=== PATIENT | male | born 1935 | race Caucasian/White ===

== ENCOUNTER → 2018-01-15 07:45 | Outpatient (CLI) | payer MEDICARE, OTHER, SELFPAY ==
--- NOTE | 2018-01-15 07:45 | DT_ITS ---
This patient was seen during an EMR downtime January 13, 2018 - January 20, 2018. This patient may have a combination of paper and electronic documentation or all paper documentation. All documentation is viewable within the e-chart portion of [facility] for each patient visit.
[2018-01-20 12:37] LABS: AST(SGOT) 18 U/L (15-37); Alanine Aminotransfer ALT/SGPT 15 U/L (16-61); Albumin, Serum 3.8 g/dL (3.2-5.0); Alkaline Phosphatase 63 U/L (45-117); Bilirubin, Direct 0.11 mg/dL (0.00-0.30); Cholesterol 166 mg/dL (200); Globulin 3.1 g/dL (2.2-4.2); High Density Lipoprotein 47 mg/dL; Protein, Total 6.9 g/dL (6.4-8.2); Triglycerides 226 mg/dL; Very Low Density Lipoprotein 45 mg/dL (5-40)
== END ==
PROVIDERS: Family Provider Internal Medicine; PCP Internal Medicine; Visit Provider Internal Medicine Cardiovascular Disease
DX: E78.00 Pure hypercholesterolemia, unspecified (principal); I25.10 Atherosclerotic heart disease of native coronary artery without angina pectoris
CPT/HCPCS: 36415; 80061; 80076

== ENCOUNTER 2018-02-11 07:34 | Emergency (ER) | payer MEDICARE, OTHER, SELFPAY ==
[2018-02-11 07:35] VITALS: BP 212/82; PULSE 8; RESP 16; TEMP 36.4; O2SAT 98; BMI 30.7
[2018-02-11 07:52] VITALS: BP 162/62; PULSE 76; RESP 18; O2SAT 97
--- NOTE | 2018-02-11 08:00 | CT_ITS ---
STUDY: CT ABDOMEN AND PELVIS WITH CONTRAST REASON FOR EXAM: Male, 82 years old. Left shoulder pain. Colonoscopy performed 24 hours prior to the examination. History of colon cancer. RADIATION DOSAGE (If Supplied By Facility): CTDIvol = ( 16.93 ) mGy, DLP = ( 1360.26 ) mGycm TECHNIQUE: Transaxial images were obtained from the dome of the diaphragm to the symphysis pubis without oral contrast. 100CC ml of Isovue 300 contrast was administered. Sagittal and coronal images were reconstructed. Individualized dose optimization techniques were used for this CT. COMPARISON: Comparison is made with prior examination dated May 07, 2017. FINDINGS: There are increased linear markings at the right lung base suggestive of scarring. The visualized portions of the heart are within normal limits. Normal liver. Sludge is seen within the gallbladder lumen. Normal spleen. Normal pancreas. Normal bilateral adrenal glands. There is a 3.4 cm x 4 cm cyst in the inferior pole of the right kidney. Normal left kidney. There is a small hiatal hernia. Normal small intestine. There are multiple colonic diverticula consistent with diverticulosis. The appendix is visualized and appears normal. There is diffuse atherosclerotic calcification of the abdominal aorta and its major visceral branches, without a demonstrated aneurysm. Normal inferior vena cava. Normal retroperitoneum. Mild degree of bladder wall thickening. There is enlargement of the prostate gland. The prostate measures 4.9 cm x 4.9 cm. There is a right-sided inguinal hernia containing adipose tissue. Loss of height of the superior endplate of the L2 vertebrae. CT/Abdomen/Pelvis W IV Cont ONLY IMPRESSION: Findings suggest femoral right basilar scarring. Scattered sigmoid diverticula. Prostatic hypertrophy. Mild thickening of the urinary bladder wall. Electronically Signed: Emanuel Cannon MD at 9:50 EDT Tel [phone], Service support ,
--- NOTE | 2018-02-11 08:00 | EKG12_ITS ---
Test Reason : LEFT ARM PAIN Blood Pressure : / mmHG Vent. Rate : 079 BPM Atrial Rate : 079 BPM P-R Int : 152 ms QRS Dur : 092 ms QT Int : 432 ms P-R-T Axes : 043 007 151 degrees QTc Int : 495 ms Normal sinus rhythm Voltage criteria for left ventricular hypertrophy T wave abnormality, consider anterolateral ischemia Prolonged QT Abnormal ECG Confirmed by TONIA MELCHOR, HOSSEIN ([id number]), visual effects editor JOE KIM ([id number]) on 02/13/2018 2:14:10 PM Referred By: Hossein Arita Confirmed By:HOSSEIN ARITA MD
--- NOTE | 2018-02-11 08:01 | CT_ITS ---
STUDY: CTA CHEST REASON FOR EXAM: Male, 82 years old. Left shoulder pain following recent colonoscopy. RADIATION DOSAGE (If Supplied By Facility): CTDIvol = ( 16.93 ) mGy, DLP = ( 1360.26 ) mGycm TECHNIQUE: The examination was performed with the intravenous administration of 100CC ml of Isovue 370 contrast material. Post-processing of the angiographic images was performed, with multiplanar reformation and 3D reconstruction. Individualized dose optimization techniques were used for this CT. COMPARISON: Comparison is made with prior study dated February 24, 2017. FINDINGS: Normal enhancement of the main pulmonary artery and right and left pulmonary arteries. Normal enhancement of the bilateral peripheral pulmonary arteries. There is no demonstrated pulmonary embolism. There is atherosclerotic calcification of the aortic arch with tortuosity. There is no demonstrated aortic dissection. There is cardiomegaly. There are calcifications of the coronary arteries. Stable appearance of the subcarinal lymphadenopathy. Prominent right hilar lymph node. This is unchanged. Normal hilar regions. Normal visualized trachea and bronchi. The lungs are well expanded. Emphysematous changes. Findings suggestive scarring in the right lower lobe. Since prior study, there has been improved aeration of the left lower lobe with residual bronchiectasis and scarring. Normal pleura. Normal chest wall structures. There are degenerative changes of thoracic spine. Almost complete collapse of the mid dorsal vertebrae. Normal visualized upper abdomen. CT/CTA Chest W/WO Contrast IMPRESSION: Chronic changes in the lungs. No evidence of aortic dissection. Electronically Signed: Emanuel Cannon MD at 9:53 EDT Tel [phone], Service support ,
[2018-02-11] MEDS: Morphine 4 MG/ML Syringe IV (08:15)
[2018-02-11] MEDS: Ondansetron 4 MG/2 ML Vial IV (08:15)
[2018-02-11] MEDS: 0.9% Normal Saline 1,000 ML 1000 ML IV (08:15)
[2018-02-11 08:18] VITALS: BP 155/64; PULSE 74; RESP 17; O2SAT 94
[2018-02-11 08:44] LABS: Absolute Lymphocyte Count 1.44 X10^3/ul (0.83-4.51); Absolute Neutrophil Count 3.9 X10^3/uL (2.0-7.7); Basophil# 0.02 X10^3/uL; Basophil% 0.3 % (0-1); Eosinophil# 0.16 X10^3/uL; Eosinophils% 2.6 % (0-5); Hematocrit 37.6 % (40-54); Hemoglobin 12.6 g/dl (13.0-16.5); Lymphocyte # 1.44 X10^3/ul (4.0); Mean Corp Hgb Conc 33.5 g/gl (32-36); Mean Corpuscular Hgb 31.2 pg (27.0-32.0); Mean Corpuscular Volume 93.1 fL (80-94); Mean Platelet Vol. 8.9 fl (6.2-12.0); Monocyte# 0.73 X10^3/uL; Monocyte% 11.7 % (0-10); Neutrophil % 62.2 % (47-70); Platelet Count 167 K/mm3 (150-450); RBC Distribution Width SD 47.4 fl (35.1-43.9); Red Blood Count 4.04 M/mm3 (4.6-6.2); White Blood Count 6.3 K/mm3 (4.4-11.0)
[2018-02-11 08:45] LABS: POSITIVE COUNT NO; POSITIVE DIFFERENTIAL NO; POSITIVE MORPHOLOGY NO
--- NOTE | 2018-02-11 08:51 | ED.VISSUMM ---
- ER Visit Summary Date of Service: 02/11/18 Chief Complaint: Left shoulder and arm pain History of Present Illness: The patient is a [address] Arita and Dr. Becker. He reports that he has left shoulder and arm pain that began yesterday at 5 PM. It is continuous dull, aching pain. It is 8 out of 10 at worst and 4-10 currently. Is worsened by nothing including movement. Is relieved by laying on it. Patient reports that he had a colonoscopy with biopsies and endoscopy by Dr. Maloney yesterday at [facility] [place]. States that this was completed approximately 3 hours prior to the onset of his left shoulder pain. However, he does report he was laying on his left side during this procedure. Review of systems: General: No fever, chills, cold sweats. Cardiovascular: No chest pain, palpitations. Respiratory: No cough, shortness of breath, dyspnea on exertion. Gastrointestinal: No abdominal pain, nausea, vomiting, diarrhea, melena, or hematochezia. Genitourinary: No dysuria, frequency, hematuria. Skin: No rash. Neuro: No headache, numbness, weakness. Physical Examination: Vitals: Stable. Afebrile. General: Well-nourished and well-developed. Head: Normocephalic atraumatic. Neck: Supple, no lymphadenopathy. No JVD. Nontender. Cardiovascular: Regular rate and rhythm. 2 out of 6 systolic murmur I am unable to reproduce his pain with palpation or movement of his left shoulder. There is no overlying erythema or warmth to suggest a septic joint.. Respiratory: No respiratory distress. Clear to auscultation bilaterally. Abdominal: Soft, nontender, nondistended, normal bowel sounds. No guarding, rebound, or peritoneal signs. Back: Nontender. Extremities: Nontender, no edema. Is a 2+ radial pulse. Skin: Normal color, no rash. Neurologic: Alert and oriented ?3. Cranial nerves II through XII are intact. Normal strength and sensation. Psych: Normal affect. Test Results: EKG is sinus at 79 with T-wave inversions in the 2 to V6, 1/2/aVL. QTC is 495. Is unchanged since February 24, 2017. CBC is marked for an H&H 12.6 and 37.6 monocytes of 12. Comes is more for calcium 8.2. Troponins negative. CT of the chest shows chronic changes and no dissection. CT abdomen pelvis with IV contrast only shows chronic changes. Emergency Department Course and Treatment: Patient was given a dose of morphine and is resting comfortably. Treatment Plan: Patient will be discharged with [place]. Instructed to use stool softeners. Follow-up his primary care physician 1 week if not improving. Return to the emergency department for any worsening symptoms. Disposition: To home in improved and stable condition. Impression: 1. Left arm pain, uncertain cause. This note was generated with [employer] dictation software. It may contain incorrect words, spelling, and punctuation that were not noted in review of the chart prior to signing ED Disposition - Plan for ED Patient: Chief Complaint: Upper Extremity Injury Instructions: ED Shoulder Pain [facility] Prescriptions: Hydrocodone/Acetaminophen [[place] 5-325 Tablet] 1 - 2 each PO 4X/DAY PRN PRN 3 Days #12 tablet PRN Reason: Pain Referrals: Catherine Becker MD [Primary Care Provider] - 1 Week if not improving
--- NOTE | 2018-02-11 08:54 | ED.DCSUM_ITS ---
- ER Visit Summary Date of Service: 02/11/18 Chief Complaint: Left shoulder and arm pain History of Present Illness: The patient is a [address] Arita and Dr. Becker. He reports that he has left shoulder and arm pain that began yesterday at 5 PM. It is continuous dull, aching pain. It is 8 out of 10 at worst and 4-10 currently. Is worsened by nothing including movement. Is relieved by laying on it. Patient reports that he had a colonoscopy with biopsies and endoscopy by Dr. Maloney yesterday at [facility]. States that this was completed approximately 3 hours prior to the onset of his left shoulder pain. However, he does report he was laying on his left side during this procedure. Review of systems: General: No fever, chills, cold sweats. Cardiovascular: No chest pain, palpitations. Respiratory: No cough, shortness of breath, dyspnea on exertion. Gastrointestinal: No abdominal pain, nausea, vomiting, diarrhea, melena, or hematochezia. Genitourinary: No dysuria, frequency, hematuria. Skin: No rash. Neuro: No headache, numbness, weakness. Physical Examination: Vitals: Stable. Afebrile. General: Well-nourished and well-developed. Head: Normocephalic atraumatic. Neck: Supple, no lymphadenopathy. No JVD. Nontender. Cardiovascular: Regular rate and rhythm. 2 out of 6 systolic murmur I am unable to reproduce his pain with palpation or movement of his left shoulder. There is no overlying erythema or warmth to suggest a septic joint.. Respiratory: No respiratory distress. Clear to auscultation bilaterally. Abdominal: Soft, nontender, nondistended, normal bowel sounds. No guarding, rebound, or peritoneal signs. Back: Nontender. Extremities: Nontender, no edema. Is a 2+ radial pulse. Skin: Normal color, no rash. Neurologic: Alert and oriented ?3. Cranial nerves II through XII are intact. Normal strength and sensation. Psych: Normal affect. Test Results: EKG is sinus at 79 with T-wave inversions in the 2 to V6, 1/2/ aVL. QTC is 495. Is unchanged since February 24, 2017. CBC is marked for an H&H 12.6 and 37.6 monocytes of 12. Comes is more for calcium 8.2. Troponins negative. CT of the chest shows chronic changes and no dissection. CT abdomen pelvis with IV contrast only shows chronic changes. Emergency Department Course and Treatment: Patient was given a dose of morphine and is resting comfortably. Treatment Plan: Patient will be discharged with [place]. Instructed to use stool softeners. Follow-up his primary care physician 1 week if not improving. Return to the emergency department for any worsening symptoms. Disposition: To home in improved and stable condition. Impression: 1. Left arm pain, uncertain cause. This note was generated with [facility] dictation software. It may contain incorrect words, spelling, and punctuation that were not noted in review of the chart prior to signing ED Disposition - Plan for ED Patient: Chief Complaint: Upper Extremity Injury Instructions: ED Shoulder Pain [facility] Prescriptions: Hydrocodone/Acetaminophen [[place] 5-325 Tablet] 1 - 2 each PO 4X/DAY PRN PRN 3 Days #12 tablet PRN Reason: Pain Referrals: Catherine Becker MD [Primary Care Provider] - 1 Week if not improving
[2018-02-11 09:01] LABS: Anion Gap 10 (5-15); BUN 10 mg/dL (7-18); BUN/Creat Ratio 13.4 RATIO (10-20); Calcium,Total 8.2 mg/dL (8.5-10.1); Chloride 105 mmol/L (98-107); Creatinine, Serum 0.74 mg/dL (0.70-1.30); EST Glomerular Filtration Rate 107 mL/min (>60); Est Glom Filt Rate - Afr Amer 129 mL/min (>60); Estimated Creatinine Clearance 51.39 ml/min; Glucose 89 mg/dL (74-106); Potassium 3.9 mmol/L (3.5-5.1); Sodium Level 143 mmol/L (136-145)
[2018-02-11 10:16] VITALS: BP 135/54; PULSE 67; RESP 16; RESP 18; O2SAT 96
== END 2018-02-11 10:19 | disposition home or self-care (01) ==
PROVIDERS: Emergency Provider Emergency Medicine; Family Provider Internal Medicine; PCP Internal Medicine
DX: M79.602 Pain in left arm (principal); I10 Essential (primary) hypertension; E78.00 Pure hypercholesterolemia, unspecified; I25.10 Atherosclerotic heart disease of native coronary artery without angina pectoris; J44.9 Chronic obstructive pulmonary disease, unspecified; N40.0 Benign prostatic hyperplasia without lower urinary tract symptoms; R01.1 Cardiac murmur, unspecified
CPT/HCPCS: 71275; 74177; 80048; 84484; 85025; 93005; 99284; J7030; Q9967; A4216; J2405

== ENCOUNTER → 2018-05-30 10:35 | Outpatient (CLI) | payer MEDICARE, OTHER, SELFPAY ==
--- NOTE | 2018-05-30 10:40 | CDU_ITS ---
Reason For Study: Carotid artery stenosis Rt. Velocities/BP Lt. Velocities/BP Prox CCA 89.1/8.79 cm/sec. Prox CCA 103/10.6 cm/sec. Mid CCA 102/14.9 cm/sec. Mid CCA 99.1/11.7 cm/sec. Dist CCA 108/13.4 cm/sec. Dist CCA 99.7/11.1 cm/sec. Prox ICA 68.6/17.6 cm/sec. Prox ICA 312/59.9 cm/sec. Mid ICA 88.5/22.3 cm/sec. Mid ICA 270/36.1 cm/sec. Dist ICA 84.4/24 cm/sec. Dist ICA 68/13.5 cm/sec. Rt. ICA/CCA = 0.87. Lt. ICA/CCA = 3.13. Prox ECA 113 cm/sec. Prox ECA 114 cm/sec. Rt. Vert. 63/13 cm/sec. Lt. Vert. 49.9/9.43 cm/sec. Right Extracranial There is heterogeneous, smooth atherosclerotic plaque noted in the right common carotid artery. There is heterogeneous, smooth atherosclerotic plaque noted in the right internal carotid artery. There is heterogeneous, irregular atherosclerotic plaque noted in the right external carotid artery. Antegrade flow is noted in the right vertebral artery. Left Extracranial There is heterogeneous, smooth atherosclerotic plaque noted in the left common carotid artery. There is heterogeneous, irregular atherosclerotic plaque noted in the left internal carotid artery. There is heterogeneous, smooth atherosclerotic plaque noted in the left external carotid artery. Antegrade flow is noted in the left vertebral artery. Procedure Carotid Duplex [id number]. Exam performed in department. Interpretation Summary Mild (<50%) stenosis right extracranial internal carotid. Severe (>70%) stenosis left extracranial internal carotid. Flow within the vertebral arteries is antegrade bilaterally. Ordering Physician: Shayne Anderson .eferring Physician: Catherine Becker M.D
== END ==
PROVIDERS: Family Provider Internal Medicine; PCP Internal Medicine; Referring Provider Nurse Practitioner Family; Visit Provider Nurse Practitioner Family
DX: I65.22 Occlusion and stenosis of left carotid artery (principal)
CPT/HCPCS: 93880

== ENCOUNTER → 2019-04-22 19:54 | Outpatient (CLI) | payer MEDICARE, OTHER, SELFPAY ==
[2019-04-08 08:55] VITALS: BMI 31.1
== END ==
PROVIDERS: Family Provider Internal Medicine; PCP Internal Medicine; Referring Provider Internal Medicine Critical Care Medicine; Visit Provider Internal Medicine Critical Care Medicine
DX: G47.10 Hypersomnia, unspecified (principal)
CPT/HCPCS: 95810

== ENCOUNTER → 2019-04-23 09:40 | Outpatient (CLI) | payer MEDICARE, OTHER, SELFPAY ==
[2019-04-08 08:55] VITALS: BMI 31.1
--- NOTE | 2019-04-24 08:34 | PFT ---
INTRODUCTION: The patient is an 84-year-old male that presents for pulmonary function studies secondary to a diagnosis of dyspnea. Respiratory therapy reports good patient effort. Bronchodilators were used during testing. INTERPRETATION: Forced expiration spirometry demonstrates the presence of a moderate large airways obstructive ventilatory defect. There was no significant response to aerosolized bronchodilators, based upon strict ATS criteria. Spirograms are of good quality and do not plateau indicating slow emptying of the lungs. Body plethysmography was performed and reveals lung volumes to be within normal limits. Diffusing capacity by single breath CO is reduced at 62% of predicted. IMPRESSION: Irreversible moderate large airways obstructive ventilatory defect with reduction in diffusing capacity.
== END ==
PROVIDERS: Family Provider Internal Medicine; PCP Internal Medicine; Referring Provider Internal Medicine Critical Care Medicine; Visit Provider Internal Medicine Critical Care Medicine
DX: R06.09 Other forms of dyspnea (principal); R05 Cough
CPT/HCPCS: 87070; 87077; 87186; 87205; 94060; 94726; 94729

== ENCOUNTER → 2019-04-24 14:37 | Outpatient (CLI) | payer MEDICARE, OTHER, SELFPAY ==
[2019-04-08 08:55] VITALS: BMI 31.1
--- NOTE | 2019-04-24 14:40 | ECHOCS_ITS ---
Reason For Study: Dyspnea/SOB Procedure This was a 2D Doppler, Color Flow transthoracic echocardiogram. Contrast injection was performed. The study was technically difficult. Exam performed in department. Left Ventricle Normal LV size. Moderate concentric left ventricular hypertrophy. The estimated ejection fraction is 55 %. Mid cavitary gradient noted. No regional wall motion abnormalities noted. Right Ventricle Normal RV size. Normal systolic function. Atria The left atrium is moderately enlarged. Normal right atrium. Mitral Valve There is moderate mitral annular calcification. Mild (1+) eccentric mitral valve insufficiency. Tricuspid Valve Normal tricuspid valve. Aortic Valve Trisinus/trileaflet aortic valve. Moderate focal aortic valve calcification. Peak aortic valve gradient 38 mmHg. Mean aortic valve gradient 20 mmHg. Mild to moderate aortic stenosis. Mild (1+) aortic valve insufficiency. Pulmonic Valve Normal pulmonic valve. Great Vessels Normal aortic root. The pulmonary artery is normal size. Normal inferior vena cava. Pericardium/Pleural No pericardial effusion. Medication 22 gauge I.V. with prn adaptor inserted into left arm. Diluted definity 4ml given slow IV push to enhance endocardial definition. MMode/2D Measurements & Calculations LVIDd: 4.4 cm IVSd: 1.8 cm LVOT diam: 2.1 cm LVIDs: 2.9 cm LVPWd: 1.9 cm RVDd: 2.8 cm FS: 33.6 % LVOT area: 3.6 cm2 Ao root diam: 3.4 cm LAV(MOD-bp): 100.6 ml LA A4 area: 29.1 cm2 ACS: 1.2 cm LAV(MOD-bp) Indexed: 51.4 ml/m2 LA dimension: 4.8 cm LAV(MOD-sp2): 87.8 ml LAV(MOD-sp4): 110.9 ml RA A4 area: 14.8 cm2 Time Measurements MV dec time: 0.19 sec Doppler Measurements & Calculations MV E max andrew: 104.6 cm/sec Lat Peak E' Andrew: 4.6 cm/sec Med Peak E' Andrew: 3.4 cm/sec MV A max andrew: 112.1 cm/sec E/E' lat: 22.8 E/E' med: 31.2 MV E/A: 0.93 MV V2 max: 123.3 cm/sec MV P1/2t max andrew: 115.6 cm/sec Ao V2 max: 308.6 cm/sec MV max P.1 mmHg MV P1/2t: 100.3 msec Ao max P.1 mmHg MV V2 mean: 71.7 cm/sec MV dec slope: 337.4 cm/sec2 Ao V2 mean: 204.8 cm/sec MV mean P.4 mmHg Ao mean P.6 mmHg MV V2 VTI: 34.4 cm MVA(P1/2t): 2.2 cm2 Ao V2 VTI: 69.0 cm MVA(VTI): 2.4 cm2 ANEL(I,D): 1.2 cm2 ANEL(V,D): 1.2 cm2 AI max andrew: 403.0 cm/sec LV V1 max: 100.1 cm/sec MR max andrew: 541.4 cm/sec AI max P.0 mmHg LV V1 max P.0 mmHg MR max P.2 mmHg AI dec slope: 345.2 cm/sec2 LV V1 mean P.8 mmHg AI P1/2t: 342.0 msec LV V1 mean: 59.9 cm/sec LV V1 VTI: 22.7 cm SV(LVOT): 81.5 ml PA V2 max: 93.4 cm/sec Interpretation Summary Normal LV size. Moderate concentric left ventricular hypertrophy. The estimated ejection fraction is 55 %. Mean aortic valve gradient 20 mmHg. Mild to moderate aortic stenosis. Mild (1+) aortic valve insufficiency. Ordering Physician: Jonny Campa Referring Physician: Catherine Becker M.D. Performed By: Nima Peters RCS
== END ==
PROVIDERS: Family Provider Internal Medicine; PCP Internal Medicine; Referring Provider Internal Medicine Critical Care Medicine; Visit Provider Internal Medicine Critical Care Medicine
DX: R06.09 Other forms of dyspnea (principal); I42.1 Obstructive hypertrophic cardiomyopathy
CPT/HCPCS: 93306; Q9957; A4216; C8929

== ENCOUNTER → 2019-06-04 09:39 | Outpatient (CLI) | payer MEDICARE, OTHER, SELFPAY ==
[2019-05-29 15:57] VITALS: BMI 30.9
--- NOTE | 2019-06-04 09:43 | CDU_ITS ---
Reason For Study: Vertigo Rt. Velocities/BP Lt. Velocities/BP Prox CCA 82.6/12.1 cm/sec. Prox CCA 100.9/7.8 cm/sec. Mid CCA 78.6/9.5 cm/sec. Mid CCA 80.8/11.5 cm/sec. Dist CCA 87.8/9.5 cm/sec. Dist CCA 104/7.8 cm/sec. Prox ICA 70.4/13.9 cm/sec. Prox ICA 296.2/52.1 cm/sec. Mid ICA 70.4/16.3 cm/sec. Mid ICA 122.1/12.3 cm/sec. Dist ICA 83.9/15.1 cm/sec. Dist ICA 95.7/16.7 cm/sec. Rt. ICA/CCA = 1.02. Lt. ICA/CCA = 2.94. Prox ECA 117.4 cm/sec. Prox ECA 142.9 cm/sec. Rt. Vert. 80.9/17 cm/sec. Lt. Vert. 52.3/10.6 cm/sec. Right Extracranial There is homogeneous, smooth atherosclerotic plaque noted in the right common carotid artery. There is heterogeneous, smooth atherosclerotic plaque noted in the right internal carotid artery. There is heterogeneous, irregular atherosclerotic plaque noted in the right external carotid artery. Antegrade flow is noted in the right vertebral artery. Left Extracranial There is homogeneous, smooth atherosclerotic plaque noted in the left common carotid artery. There is heterogeneous, irregular atherosclerotic plaque noted in the left internal carotid artery. There is homogeneous, smooth atherosclerotic plaque noted in the left external carotid artery. Antegrade flow is noted in the left vertebral artery. Procedure Carotid Duplex [id number]. Exam performed in department. Interpretation Summary Mild (<50%) stenosis right extracranial internal carotid. Severe (>70%) stenosis left extracranial internal carotid. Flow within the vertebral arteries is antegrade bilaterally. Ordering Physician: Shayne Anderson Referring Physician: Catherine Becker M.D. Performed By: Malena Segura RVT
== END ==
PROVIDERS: Family Provider Internal Medicine; PCP Internal Medicine; Referring Provider Nurse Practitioner Family; Visit Provider Nurse Practitioner Family
DX: I65.22 Occlusion and stenosis of left carotid artery (principal); I25.10 Atherosclerotic heart disease of native coronary artery without angina pectoris; I42.1 Obstructive hypertrophic cardiomyopathy; E78.00 Pure hypercholesterolemia, unspecified; Z95.5 Presence of coronary angioplasty implant and graft
CPT/HCPCS: 93880

== ENCOUNTER → 2020-11-24 10:41 | Outpatient (CLI) | payer MEDICARE, OTHER, SELFPAY ==
[2020-08-23 12:49] VITALS: BMI 28.5
--- NOTE | 2020-11-24 10:44 | CDU_ITS ---
Reason For Study: carotid stenosis Rt. Velocities/BP Lt. Velocities/BP Prox CCA 66.4/11.6 cm/sec. Prox CCA 109.3/11.0 cm/sec. Mid CCA 79.4/10.3 cm/sec. Mid CCA 109.3/8.9 cm/sec. Dist CCA 82.0/9.0 cm/sec. Dist CCA 103.8/8.3 cm/sec. Prox ICA 65.5/12.6 cm/sec. Prox ICA 297.7/34.9 cm/sec. Mid ICA 80.1/16.2 cm/sec. Mid ICA 238/9/27.1 cm/sec. Dist ICA 96.6/23.6 cm/sec. Dist ICA 65.0/12.2 cm/sec. Rt. ICA/CCA = 1.2. Lt. ICA/CCA = 2.7. Prox ECA 116.6 cm/sec. Prox ECA 125.7 cm/sec. Rt. Vert. 65.5/12.6 cm/sec. Lt. Vert. 60.0/9.7 cm/sec. Right Extracranial There is heterogeneous, irregular atherosclerotic plaque noted in the right common carotid artery. There is heterogeneous, irregular atherosclerotic plaque noted in the right internal carotid artery. There is heterogeneous, irregular atherosclerotic plaque noted in the right external carotid artery. Antegrade flow is noted in the right vertebral artery. Left Extracranial There is heterogeneous, irregular atherosclerotic plaque noted in the left common carotid artery. There is heterogeneous, irregular atherosclerotic plaque noted in the left internal carotid artery. There is homogeneous, smooth atherosclerotic plaque noted in the left external carotid artery. Antegrade flow is noted in the left vertebral artery. Procedure Carotid Duplex 73709. This is a Carotid Duplex examination using B-mode, color flow and specral Doppler. The exam was diagnostic. Exam performed in department. VL/Carotid Duplex Ultrasound Interpretation Summary Mild (<50%) stenosis right extracranial internal carotid. Moderate (50-69%) adore nosis left extracranial internal carotid. Flow within the vertebral arteries is antegrade bilaterally. Ordering Physician: Micheal Saenz Performed By: Guanakito Peterson RVT and Student
== END ==
PROVIDERS: PCP Internal Medicine; Visit Provider Surgery Vascular Surgery
DX: I65.23 Occlusion and stenosis of bilateral carotid arteries (principal)
CPT/HCPCS: 93880

== ENCOUNTER → 2021-04-06 09:39 | Outpatient (CLI) | payer MEDICARE, OTHER, SELFPAY ==
[2021-03-02 11:34] VITALS: BMI 28.7
--- NOTE | 2021-04-06 09:40 | ECHOCS_ITS ---
Reason For Study: MURMUR Procedure This was a 2D Doppler, Color Flow transthoracic echocardiogram. The study was technically difficult. Contrast injection was performed. Exam performed in department. Left Ventricle Normal LV size. Moderate concentric left ventricular hypertrophy. Left ventricular systolic function is lower limits of normal. The estimated ejection fraction is 50 %. Stage 3 diastolic dysfunction. [employer] : Akinetic. Right Ventricle Normal RV size. Normal systolic function. Mitral Valve There is moderate mitral annular calcification. Aortic Valve Trisinus/trileaflet aortic valve. Moderate focal aortic valve calcification. Peak aortic valve gradient 50 mmHg. Mean aortic valve gradient 30 mmHg. Moderate aortic stenosis. Mild (1+) eccentric aortic valve insufficiency. Pulmonic Valve The pulmonic valve is not well visualized. Great Vessels Normal aortic root. The pulmonary artery is normal size. Normal inferior vena cava. Pericardium/Pleural No pericardial effusion. Medication 22 gauge I.V. with prn adaptor inserted into left arm. Diluted definity 3.0ml given slow IV push to enhance endocardial definition. MMode/2D Measurements & Calculations LVIDd: 5.1 cm IVSd: 1.4 cm LVOT diam: 2.0 cm LVIDs: 3.6 cm LVPWd: 1.4 cm LVOT area: 3.2 cm2 RVDd: 2.8 cm FS: 28.4 % LA dimension: 4.8 cm LAV(MOD-bp): 81.8 ml LA A4 area: 26.6 cm2 LAV(MOD-bp) Indexed: 43.0 ml/m2 LAV(MOD-sp2): 70.0 ml LAV(MOD-sp4): 95.0 ml RA A4 area: 19.5 cm2 Time Measurements MV dec time: 0.16 sec Doppler Measurements & Calculations MV E max andrew: 114.1 cm/sec Lat Peak E' Andrew: 5.7 cm/sec Med Peak E' Andrew: 3.0 cm/sec MV A max andrew: 55.4 cm/sec E/E' lat: 19.9 E/E' med: 37.9 MV E/A: 2.1 Ao V2 max: 355.2 cm/sec AI max andrew: 397.9 cm/sec LV V1 max: 71.8 cm/sec Ao max P.5 mmHg AI max P.4 mmHg LV V1 max P.1 mmHg Ao V2 mean: 265.9 cm/sec AI dec slope: 275.5 cm/sec2 LV V1 mean P.1 mmHg Ao mean P.4 mmHg AI P1/2t: 423.0 msec LV V1 mean: 50.0 cm/sec Ao V2 VTI: 83.0 cm LV V1 VTI: 15.4 cm ANEL(I,D): 0.60 cm2 ANEL(V,D): 0.65 cm2 SV(LVOT): 49.8 ml PA V2 max: 69.5 cm/sec PI dec slope: 247.0 cm/sec2 ECHO/Echo Complete W/ Contrast Interpretation Summary Normal LV size. Moderate concentric left ventricular hypertrophy. Left ventricular systolic function is lower limits of normal. The estimated ejection fraction is 50 %. Stage 3 diastolic dysfunction. Moderate focal aortic valve calcification. Mean aortic valve gradient 30 mmHg. Mild (1+) eccentric aortic valve insufficiency. Moderate aortic stenosis. Contrast injection was performed. Ordering Physician: Lane Arita Referring Physician: Catherine Becker Performed By: Nelida Pope, MYRIAM, RVT
== END ==
PROVIDERS: PCP Internal Medicine; Referring Provider Internal Medicine Cardiovascular Disease; Visit Provider Internal Medicine Cardiovascular Disease
DX: R01.1 Cardiac murmur, unspecified (principal); I35.0 Nonrheumatic aortic (valve) stenosis
CPT/HCPCS: 93306; Q9957; A4216; C8929; J3490

== ENCOUNTER 2021-12-15 08:42 | Day surgery (SDC) | payer MEDICARE, OTHER, SELFPAY ==
--- NOTE | 2021-12-11 11:30 | RAD_ITS ---
STUDY: X-RAY CHEST REASON FOR EXAM: Male, 86 years old. cad TECHNIQUE: PA and lateral COMPARISON: 02/25/2017 FINDINGS: There is bilateral basilar infiltrate more prominent on the left. There is no demonstrated pleural abnormality. Normal size heart. Normal mediastinum and marc. Normal visualized pulmonary arteries. Normal visualized aortic arch and descending thoracic aorta. Normal visualized thoracic spine. Normal visualized ribs, clavicles, and shoulders. There is no demonstrated abnormality of the visualized soft tissue structures of the upper abdomen. RAD/Chest PA and Lateral IMPRESSION: Normal x-ray examination of the chest. Electronically Signed: Rodolfo Rose MD at 2:41 EDT ,
[2021-12-11 11:55] LABS: Absolute Lymphocyte Count 1.84 X10^3/uL (0.83-4.51); Absolute Neutrophil Count 6.2 X10^3/uL (2.0-7.7); Basophil# 0.03 X10^3/uL; Basophil% 0.3 % (0-1); Eosinophil# 0.23 X10^3/uL; Eosinophils% 2.5 % (0-5); Hematocrit 41.2 % (40-54); Lymphocyte # 1.84 X10^3/ul (0.83-4.51); Lymphocyte % 19.9 % (19-41); Mean Corp Hgb Conc 31.6 g/dL (32-36); Mean Corpuscular Hgb 28.4 pg (27.0-32.0); Mean Corpuscular Volume 90.2 fL (80-94); Mean Platelet Vol. 9.2 fl (6.2-12.0); Monocyte# 0.86 X10^3/uL; Monocyte% 9.3 % (0-10); NRBC Flagged by Analyzer 0 % (0-5); Neutrophil # 6.22 X10^3/uL (2.7-7.7); Neutrophil % 67.4 % (47-70); Platelet Count 267 K/mm3 (150-450); RBC Distribution Width CV 15.5 % (11.6-14.6); RBC Distribution Width SD 51.2 fl (35.1-43.9); Red Blood Count 4.57 M/mm3 (4.6-6.2); White Blood Count 9.2 K/mm3 (4.4-11.0)
[2021-12-11 12:37] LABS: ALB/GLOB Ratio 1.1 RATIO (0.9-2.4); AST(SGOT) 35 U/L (15-37); Alanine Aminotransfer ALT/SGPT 15 U/L (16-61); Alkaline Phosphatase 85 U/L (45-117); Anion Gap 6 (5-15); BUN 12 mg/dL (7-18); BUN/Creat Ratio 12.4 RATIO (10-20); Calcium,Total 9.1 mg/dL (8.5-10.1); Chloride 101 mmol/L (98-107); Cholesterol 180 mg/dL (200); Creatinine, Serum 0.97 mg/dL (0.70-1.30); EST Glomerular Filtration Rate 78 mL/min (>60); Est Glom Filt Rate - Afr Amer 95 mL/min (>60); Globulin 3.6 g/dL (2.2-4.2); Glucose 97 mg/dL (74-106); High Density Lipoprotein 54 mg/dL; Magnesium 2.1 mg/dL (1.6-2.6); Potassium 4.4 mmol/L (3.5-5.1); Protein, Total 7.6 g/dL (6.4-8.2); Sodium Level 136 mmol/L (136-145); Triglycerides 271 mg/dL; Very Low Density Lipoprotein 54 mg/dL (5-40)
[2021-12-14 08:08] VITALS: BMI 28.5
--- NOTE | 2021-12-15 11:12 | CL.D_ITS ---
Patient Name: AB SHEA Study Date: 12/15/2021 Performing: Lane Arita MD Ht: 66.14 inches 168 cm : 1935 Wt: 176.37 lbs 80 kg Age: 86 Gender: male BSA: 1.9 PROCEDURE(S) PERFORMED [id number])LHC/COR/LV CLINICAL PROFILE AND INDICATIONS Indications: Suspected CAD Heart Failure: None Stress/Imaging Stress/Image Study Performed: No CAD Presentations: Symptom unlikely to be ischemic. CONCLUSIONS Severe atherosclerotic cardiovascular disease with calcified aorta, normal left main coronary artery, left anterior descending artery with calcification and tortuosity and aneurysmal dilatation, mid lef t circumflex artery with subtotal occlusion, right coronary artery which is totally occluded in the m idsegment with [id number] collaterals. Left ventricular systolic dysfunction with an akinetic basal inferior, mid inferior and dyskinetic ap ex with hypokinetic rest of the ty noted. Estimated EF 35% Aortic Valve Stenosis- Moderate RECOMMENDATIONS We will consider surgical evaluation DESCRIPTION OF PROCEDURE The patient arrived to the procedure lab. The risks and benefits of the procedure as well as a full d escription of our services here and current unavailability of surgical backup were fully explained to the patient and/or their significant other prior to the catheterization. The Timeout was completed, verifying the correct patient and procedure. The patient's procedural site was prepped and draped in the usual fashion. Local anesthetic was given subcutaneously to right radial region with Lidocaine 2% . Using a modified Seldinger technique, arterial access was obtained via the right radial artery, a 6 Fr sheath was inserted. Right Coronary Artery selective angiography was then performed in multiple v iews using a 5 Fr. 4.0 [place] catheter. Left Coronary Artery selective angiography was performed in mu ltiple views using a 5 Fr. 4.0 [place] catheter. Left Ventriculography was performed in HOYOS projection using a 5 Fr. [place] catheter. LV to AO pullback pressures were then recorded.The arterial sheath was pulled and a TR Band was applied for hemostasis w/ 12ml air CORONARY ANGIOGRAPHY DOMINANCE: Left Dominant LEFT HEART ASSESSMENT Left Ventricular Ejection Fraction: by LV Gram 35 % Inferior Basal Akinesis. Inferior Mid Akinesis. Apical Dyskinesis - Severe. Abnormal LV wall motion LEFT MAIN: Mild calcification LEFT ANTERIOR DESCENDING ARTERY: Left anterior descending artery is a large vessel with mild proximal calcification and mid segment with a 60% cleft like stenosis and an aneurysmal portion in the mid se gment. The distal left anterior descending artery continues and courses around the apex of the ventr icle no high-grade stenosis is noted CIRCUMFLEX ARTERY: The left circumflex artery is a large vessel with a very small obtuse marginal bra nch a second large obtuse marginal branch with no significant stenosis and then the vessel trifurcate s to the third obtuse marginal branch with no significant stenosis proximally and the mid segment is subtotally occluded. An AV groove branch is noted which supplies collaterals to the distal right cor onary artery RIGHT CORONARY ARTERY: This appears to be a nondominant vessel with total occlusion in the midsegment and distal collateral filling from the left to right COLLATERAL FLOW: Collateral flow from Left to Right VALVE FINDINGS: Aortic Valve Stenosis - moderate AORTIC ROOT: Calcified COMPLICATIONS No Complications PROCEDURE MEDICATIONS Versed 0.5 mg IV Fentanyl 25 mcg IV Oxygen: 2 L/min via nasal cannula Heparin given IA 12/15/2021 10:00:08 Verapamil 2.5mg, Ntg 100mcgs, 3000 units of Heparin given IA 12/15/2021 10:00:08 SUMMARY OF HEMODYNAMIC DATA Time AIR REST ECG 08:57:52 AO 123/49 (74) SA 10:15:49 LV 157/9, 21 10:26:45 LV 158/10, 21 10:26:53 LV 154/12, 22 10:28:02 LV 162/13, 24 10:28:11 LV 167/13, 22 10:30:19 LV 152/11, 22 10:30:27 LV 164/16, 28 10:31:25 LV 160/15, 26 10:31:33 LVp 129/23, 37 10:31:43 AOp 117/43 (69) 10:31:[address] Arita MD On 12/15/2021 11:11:[address] rAita MD
== END 2021-12-15 12:30 | disposition home or self-care (01) ==
LOC: CLSP 08:45
PROVIDERS: PCP Internal Medicine; Referring Provider Internal Medicine Cardiovascular Disease; Visit Provider Internal Medicine Cardiovascular Disease
DX: I71.2 Thoracic aortic aneurysm, without rupture (principal); J44.9 Chronic obstructive pulmonary disease, unspecified; I42.1 Obstructive hypertrophic cardiomyopathy; I11.0 Hypertensive heart disease with heart failure; I50.32 Chronic diastolic (congestive) heart failure; I77.1 Stricture of artery; I70.0 Atherosclerosis of aorta; I73.9 Peripheral vascular disease, unspecified; I25.10 Atherosclerotic heart disease of native coronary artery without angina pectoris; I25.82 Chronic total occlusion of coronary artery; I35.0 Nonrheumatic aortic (valve) stenosis; Z95.5 Presence of coronary angioplasty implant and graft; Z86.79 Personal history of other diseases of the circulatory system; I65.23 Occlusion and stenosis of bilateral carotid arteries; Z79.899 Other long term (current) drug therapy; Z85.038 Personal history of other malignant neoplasm of large intestine; I25.2 Old myocardial infarction; E66.9 Obesity, unspecified; Z87.891 Personal history of nicotine dependence
CPT/HCPCS: 36415; 71046; 80053; 80061; 83735; 85025; 93458; 99152; 99153; J7030; Q9967; C1769; C1894

== ENCOUNTER → 2022-08-10 | Outpatient (CLI) | payer MEDICARE, OTHER, SELFPAY ==
[2022-08-10 08:11] LABS: Hematocrit 36.3 % (40-54); Mean Corp Hgb Conc 30.3 g/dL (32-36); Mean Corpuscular Hgb 26.5 pg (27.0-32.0); Mean Corpuscular Volume 87.5 fL (80-94); Platelet Count 260 K/mm3 (150-450); RBC Distribution Width CV 15.9 % (11.6-14.6); RBC Distribution Width SD 50.5 fl (35.1-43.9); Red Blood Count 4.15 M/mm3 (4.6-6.2); White Blood Count 8.3 K/mm3 (4.4-11.0)
[2022-08-10 08:33] LABS: Anion Gap 8 (5-15); BNP,B-Type NATRIURETIC PEPTIDE 650.7 pg/mL (0-100); BUN 11 mg/dL (7-18); BUN/Creat Ratio 10.9 RATIO (10-20); Calcium,Total 8.8 mg/dL (8.5-10.1); Chloride 101 mmol/L (98-107); Creatinine, Serum 1.01 mg/dL (0.70-1.30); EST Glomerular Filtration Rate 74 mL/min (>60); Est Glom Filt Rate - Afr Amer 90 mL/min (>60); Glucose 117 mg/dL (74-106); Potassium 3.8 mmol/L (3.5-5.1); Sodium Level 135 mmol/L (136-145)
[2022-08-10 08:57] LABS: Digoxin Level 0.79 ng/mL (0.80-2.00)
== END | disposition home or self-care (01) ==
LOC: LAB 07:20
PROVIDERS: PCP Internal Medicine; Referring Provider Internal Medicine Cardiovascular Disease; Visit Provider Internal Medicine Cardiovascular Disease
DX: R63.0 Anorexia (principal); I42.1 Obstructive hypertrophic cardiomyopathy; I50.32 Chronic diastolic (congestive) heart failure; I48.91 Unspecified atrial fibrillation; R42 Dizziness and giddiness; R26.89 Other abnormalities of gait and mobility; R53.1 Weakness; Z95.2 Presence of prosthetic heart valve
CPT/HCPCS: 36415; 80048; 80162; 83880; 85027

== ENCOUNTER → 2022-08-16 | Outpatient (CLI) | payer MEDICARE, OTHER, SELFPAY | END | disposition home or self-care (01) | LOC: PSN 12:22 | PROVIDERS: PCP Internal Medicine; Visit Provider Nurse Practitioner Family | DX: R42 Dizziness and giddiness (principal); I48.91 Unspecified atrial fibrillation; R53.1 Weakness; Z95.2 Presence of prosthetic heart valve | CPT/HCPCS: 93225; 93226 ==

== ENCOUNTER 2022-09-10 09:14 | Day surgery (SDC) | payer MEDICARE, OTHER, SELFPAY ==
[2022-09-04 17:07] LABS: Anion Gap 8 (5-15); BUN 10 mg/dL (7-18); BUN/Creat Ratio 10.4 RATIO (10-20); Calcium,Total 9.3 mg/dL (8.5-10.1); Chloride 100 mmol/L (98-107); Creatinine, Serum 0.96 mg/dL (0.70-1.30); EST Glomerular Filtration Rate 78 mL/min (>60); Est Glom Filt Rate - Afr Amer 95 mL/min (>60); Glucose 118 mg/dL (74-106); Potassium 4.7 mmol/L (3.5-5.1); Sodium Level 134 mmol/L (136-145)
[2022-09-07 07:42] VITALS: BMI 26.6
--- NOTE | 2022-09-10 10:36 | [place]_ITS ---
Reason For Study: AFIB/FLUTTER Medication NORMA probe 6VT-D (SN [id number]) passed without difficulty. No complications were noted. Cetacaine Topical [place] given X3 orally. Versed 1 mg given slow IVP. Fentanyl 50 mcg given slow IVP. Performed a rapid injection of agitated mix of 9 cc saline and 1cc air to assess for atrial septal defect. Left Ventricle Normal LV size. Moderate global left ventricular systolic dysfunction. The estimated ejection fraction is 37 %. There is moderate global hypokinesis of the left ventricle. Right Ventricle Normal RV size. Normal systolic function. Atria Bubble contrast study negative for right to left interatrial shunt. The left atrium is moderately enlarged. There is mild sponatenous contrast in the left atrium. No thrombus is detected in the left atrial appendage. Normal right atrium. Mitral Valve Mild focal mitral valve calcification, bileaflet. Mild (1+) eccentric mitral valve insufficiency. Tricuspid Valve Normal tricuspid valve. Aortic Valve Bioprosthetic aortic valve functioning normally. Pulmonic Valve Normal pulmonic valve. Vessels Normal aortic root. Normal arch. The pulmonary artery is normal size. Pericardium No pericardial effusion. ECHO/Echo Transesophageal (NORMA) Interpretation Summary Normal LV size. Moderate global left ventricular systolic dysfunction. The estimated ejection fraction is 37 %. Bubble contrast study negative for right to left interatrial shunt. The left atrium is moderately enlarged. No thrombus is detected in the left atrial appendage. Ordering Physician: Lane Arita Referring Physician: Catherine Becker Performed By: Nelida Pope, MYRIAM, RVT
--- NOTE | 2022-09-10 12:31 | PCM.OP.BLANK ---
Operative Report Date of Procedure: 09/10/22 DC cardioversion. 87-year-old man status post TAVR and in persistent atrial flutter which is symptomatic. Patient underwent a NORMA today which excluded a left atrial appendage thrombus. The patient was then seen by Dr. Campa of the critical care division after informed consent was obtained. 4 mg of intravenous etomidate was administered and the patient then had anterior-posterior pads applied and 200 J of biphasic DC cardioversion energy were applied with prompt reversal to sinus rhythm. Patient did have intermittent atrial fibrillation flutter noted. The patient was administered 150 mg of intravenous amiodarone. Conclusion: Successful DC cardioversion from atrial flutter to sinus rhythm. Continue p.o. amiodarone. Continue current medication.
--- NOTE | 2022-09-10 13:26 | PRO.PCM_ITS ---
Assessment & Plan Assessment/Plan (1) Afib: (2) S/P TAVR (transcatheter aortic valve replacement): (3) SUDEEP (obstructive sleep apnea): (4) Stage 2 moderate COPD by GOLD classification: Procedure Report Date of Procedure: 09/10/22 CONSCIOUS SEDATION REPORT BRIEF HISTORY OF PRESENT ILLNESS: The patient is an 87-year-old male who presented to [facility] for an elective outpatient cardioversion due to underlying atrial fibrillation. The patient did have a NORMA prior to cardioversion. Patient was given 50 mcg of fentanyl and 1 mg of Versed for that procedure. Patient was noted to have an EF of 35% during the NORMA, but no clots were noted. The patient reports no PO intake since midnight, but is currently therapeutic on anticoagulation. The patient does have a history of SUDEEP and COPD. The patient denies any recent constitutional symptoms such as fevers, chills, nausea or vomiting. The patient denies previous applicable anesthetic complications. PHYSICAL EXAMINATION: VITAL SIGNS: Reviewed and were acceptable. GENERAL: The patient is a male, in no apparent distress, speaking in full sentences. HEENT: Normocephalic, atraumatic. Mucous membranes are moist and pink. Good mouth opening noted. Trachea is midline. Good neck mobility. MP II CHEST: S1, S2 irregularly irregular. No murmurs, rubs or gallops were noted. LUNGS: Clear to auscultation bilaterally without appreciable wheezes, rales or rhonchi. ABDOMEN: Soft, nontender, nondistended. Positive bowel sounds. EXTREMITIES: There is no clubbing, cyanosis or edema. ASA Class: II DESCRIPTION OF PROCEDURE: After confirmation of informed consent, the patient's anesthesia plan was reviewed in detail. Etomidate was chosen. Risks and benefits were reviewed and the patient agreed to proceed. At 12 PM, the patient was given 4 mg of etomidate. The patient achieved an appropriate level of sedation and received 1 attempt synchronized cardioversion, at [address] Arita at the bedside. This was successful in achieving normal sinus rhythm. The patient was monitored until 12:15 PM, at which time the patient reached their baseline mental status and function. The patient tolerated the procedure well. COMPLICATIONS: None ESTIMATED BLOOD LOSS: None RECOMMENDATIONS: Okay to recover in usual fashion. Procedures Pulmonary 9xxxx: [id number] Con Sedation
== END 2022-09-10 14:00 | disposition home or self-care (01) ==
LOC: CLSP 09:14
PROVIDERS: PCP Internal Medicine; Visit Provider Internal Medicine Cardiovascular Disease
DX: I48.91 Unspecified atrial fibrillation (principal); J44.9 Chronic obstructive pulmonary disease, unspecified; I11.0 Hypertensive heart disease with heart failure; I50.32 Chronic diastolic (congestive) heart failure; I48.92 Unspecified atrial flutter; G47.33 Obstructive sleep apnea (adult) (pediatric); I25.10 Atherosclerotic heart disease of native coronary artery without angina pectoris; Z95.5 Presence of coronary angioplasty implant and graft; Z87.891 Personal history of nicotine dependence; R53.83 Other fatigue; Z95.2 Presence of prosthetic heart valve; R53.1 Weakness; I65.23 Occlusion and stenosis of bilateral carotid arteries; E78.00 Pure hypercholesterolemia, unspecified
CPT/HCPCS: 36415; 80048; 87426; 92960; 93005; 93312; 93320; 93325; J7040; A4216

== ENCOUNTER 2022-11-22 09:36 | Emergency (ER) | payer MEDICARE, OTHER, SELFPAY ==
[2022-11-22 09:38] VITALS: BP 142/49; PULSE 63; RESP 18; TEMP 36.6; O2SAT 98; BMI 22.4
--- NOTE | 2022-11-22 09:44 | CT_ITS ---
STUDY: CT ABDOMEN AND PELVIS WITH CONTRAST - URINARY TRACT REASON FOR EXAM: Male, 87 years old. Intermittent mid-abd pain RADIATION DOSAGE (If Supplied By Facility): CTDIvol = ( 16.73 ) mGy, DLP = ( 793.56 ) mGycm TECHNIQUE: IV 100mL Isovue-300 was administered. Transaxial images were obtained from the dome of the diaphragm to the symphysis pubis subsequent to intravenous contrast administration.. Multiplanar coronal and sagittal images were reformatted. Individualized Dose Optimization Techniques Were Used For This CT. COMPARISON: February 11, 2018 FINDINGS: There is bibasilar atelectasis and/or scarring. There is bibasilar honeycombing. There is a stable 3.6 mm nodule within the right middle lobe which may reflect a lymph node. There are coronary artery calcifications. There is cardiomegaly. There is a prosthetic aortic valve in place. There are mitral annulus calcifications. There are stable prominent mediastinal lymph nodes. There are a few scattered hepatic granulomas. There is a round dependent high attenuation focus within the gallbladder is distended with a gallstone. There are multiple benign calcified granulomata of the spleen. Normal pancreas. Normal bilateral adrenal glands. Normal visualized stomach. Normal small intestine. Normal colon. The appendix is visualized and appears normal. There is diffuse atherosclerotic calcification of the abdominal aorta. The abdominal aorta is ectatic measuring up to 2.9 cm in diameter. No retroperitoneal adenopathy. There is a right renal cyst. Normal left kidney. There is bladder wall thickening. There is a diverticula arising from the urinary bladder right of midline. There is enlargement of the prostate gland. Normal abdominal wall. There are diffuse degenerative changes of the visualized lumbar spine. CT/Abdomen/Pelvis W IV Cont ONLY IMPRESSION: Bladder wall thickening concerning for cystitis. Enlarged prostate gland. Bladder diverticula. Atherosclerosis. Bibasilar atelectasis and/or scarring. Limited images of the lung bases demonstrate findings concerning for pulmonary fibrosis. Evidence of prior granulomatous disease. Electronically Signed: Anna Cortes MD at 10:54 EDT ,
--- NOTE | 2022-11-22 09:44 | ED.VIS.GI ---
HPI HPI - GI History of Present Illness Chief Complaint: Abd Pain Informant: patient Abdominal Pain/Flank Pain Onset: Yesterday Timing: Intermittent Quality: Sharp Location: - (periumbilical, no radiation) Current Severity: Gone Maximum Severity: Severe Nausea/Vomiting/Emesis GI Symptom: Positive for Nausea Diarrhea/Melena/Hematochezia GI Symptom: Negative for Diarrhea, Melena or Hematochezia Associated Symptoms Associated Symptoms: Negative for Dysuria or Frequency Narrative Narrative: 87-year-old male has been having intermittent severe sharp abdominal pain since last night. This morning he had a couple episodes where he was near syncopal, diaphoretic, his checked his blood pressure and it was 80 systolic. EMS was called, they said he has been doing fine for them and transport they did an EKG because he was admitted to a hospital in [place] earlier in the year for A-fib, does not appear to be in A-fib now I reviewed the EKG that they transmitted electronically. He has had open heart surgery in the past. He denies any chest symptoms now or back pain with this, nor does he have any numbness or tingling or weakness in his lower extremities. He has an enlarged prostate, he has chronic issues with emptying his bladder, those are no different now and he denies any hematuria or dysuria. [facility] Medical History Atherosclerosis of [place] coronary artery of [place] heart without angina pectoris Bilateral carotid artery stenosis Bilateral leg edema Bronchiectasis CAP (community acquired pneumonia) Chronic diastolic (congestive) heart failure Colon cancer Colon polyp COPD (chronic obstructive pulmonary disease) Essential hypertension Frequent PVCs History of non-ST elevation myocardial infarction (NSTEMI) (07/01/08) History of PSVT (paroxysmal supraventricular tachycardia) Hypertrophic obstructive cardiomyopathy (HOCM) Nonrheumatic aortic (valve) stenosis Obesity Old inferolateral myocardial infarction SUDEEP (obstructive sleep apnea) Peripheral vascular occlusive disease [place] Pure hypercholesterolemia Stage 2 moderate COPD by GOLD classification Home Medications aspirin 81 mg tablet,delayed release (Adult Low Dose Aspirin) 81 mg PO QDAY 12/02/17 [History Last Taken 09/10/22] albuterol sulfate 0.63 mg/3 mL solution for nebulization 0.63 mg inhalation Q6H PRN Shortness Of Breath Or Wheezing 11/23/21 [History Last Taken Unknown] omeprazole 40 mg capsule,delayed release 40 mg PO DAILY 11/23/21 [History Last Taken Unknown] acetaminophen 500 mg tablet (Tylenol Extra Strength) 500 mg PO .q8hr PRN Pain 07/24/22 [History Last Taken Unknown] docusate sodium 100 mg capsule 100 mg PO BID 07/24/22 [History Last Taken Unknown] guaifenesin 600 mg tablet, extended release 12 hr 600 mg PO BID 07/24/22 [History Last Taken Unknown] sennosides 8.6 mg capsule (senna) 8.6 mg PO BID 07/24/22 [History Last Taken Unknown] tamsulosin 0.4 mg capsule 0.4 mg PO QHS 07/24/22 [History Last Taken Unknown] therapeutic multivitamin 1 tab PO DAILY 07/24/22 [History Last Taken Unknown] torsemide 20 mg tablet 20 mg PO DAILY #60 tabs 07/24/22 [Rx Last Taken Unknown] apixaban 5 mg tablet (Eliquis) 5 mg PO BID #180 tabs 09/04/22 [Rx Last Taken 09/10/22] atorvastatin 20 mg tablet See Rx Instructions .Route .COMPLEX #45 tabs 09/19/22 [Rx Last Taken Unknown] potassium chloride 10 mEq capsule,extended release 10 meq PO DAILY #90 caps 11/20/22 [Rx Last Taken Unknown] sotalol 80 mg tablet 80 mg PO BID #180 tabs 11/20/22 [Rx Last Taken Unknown] cephalexin 500 mg capsule 500 mg PO TID #21 CAPSULES 11/22/22 [Rx Last Taken Unknown] Allergy/AdvReac Type Severity Reaction Status Date / Time niacin Allergy Hives Verified 11/22/22 09:42 Sulfa (Sulfonamide Allergy Hives Verified 11/22/22 09:42 Antibiotics) Family History Father CVA (cerebral vascular accident) COPD (chronic obstructive pulmonary disease) Mother Cancer Son Hypertension Surgical History History of closure of ileostomy (04/28/20) History of coronary artery stent placement (05/09/07) History of left heart catheterization (12/15/21) History of right-sided carotid endarterectomy (06/2008) History of shoulder surgery S/P TAVR (transcatheter aortic valve replacement) (~06/20/22) Status post Leah's procedure (02/01/20) Social History Smoking Status: Former smoker Tobacco: How many years used: 22 how long ago did patient quit smokin second hand exposure: No alcohol intake: former substance use type: does not use caffeine: Yes Type: coffee what type of physical activity do you participate in: none seatbelt use: always do you feel safe at home: Yes ROS ROS ED Constitutional Constitutional ED: Reports sweats; Denies chills or fever(s) Eyes Eyes: Denies change in vision or diplopia ENT ENT ED: Denies rhinorrhea or sore throat Cardiovascular Cardiovascular: Reports lightheadedness; Denies chest pain or palpitations Respiratory/Chest Respiratory/Chest: Denies cough or dyspnea Gastrointestinal Gastrointestinal: Reports abdominal pain and nausea; Denies diarrhea or vomiting Genitourinary Genitourinary ED: Denies dysuria or hematuria Musculoskeletal Musculoskeletal: Denies back pain or neck pain Integumentary Denies abscess or rash Neurologic Neurologic: Denies headache(s), paresthesias or weakness Psychiatric Psychiatric: Denies anxiety or suicidal thoughts EXAM Physical Exam Const Vital Signs: 11/22/22 09:38 Temperature 97.8 F Temperature Source Temporal Pulse Rate 63 Respiratory Rate 18 Blood Pressure 142/49 H Blood Pressure Mean 80 Pulse Ox 98 Oxygen Delivery Method Room Air Positive well nourished and well developed Constitutional Narrative: Well-appearing, no distress, conversive in full sentences and asymptomatic at this time General Appearance ED: well developed and NAD HEENT Reports moist mucous membranes normocephalic and atraumatic Eyes PERRL and EOMs intact bilaterally Neck full ROM and supple Resp normal respiratory effort and clear to auscultation bilaterally Cardio regular rate, regular rhythm and no murmurs GI non-tender and non-distended GI Narrative: No pulsatile mass or other mass or hepatosplenomegaly palpable. Benign abdomen. Auscultation: normoactive bowel sounds Palpation: soft Back/Spine no CVA tenderness General Back: other FROM Extremity normal to inspection General Extremety ED: Negative for edema, pulses abnormal or tenderness General Extremity: Negative for edema or pulses abnormal Neuro oriented x3, CN's II-XII intact bilaterally and no sensory deficits noted Sensorium / Orientation: awake and alert Motor Exam: strength 5/5 throughout Skin no rashes or lesions noted and no wounds MDM MDM MDM Narrative Medical decision making narrative: Patient did not develop any further episodes of abdominal discomfort while in the emergency department. His work-up is benign except for his urine showing infection. I did a CT of his abdomen given emergent causes in the differential such as aortic aneurysm/dissection, diverticulitis; CT shows radiographic evidence of cystitis but nothing else acute. I reviewed the images and the interpretation and I agree with the radiologist interpretation. Patient sent for urine culture, given dose of IV Rocephin, will be placed on cephalexin (patient allergic to sulfa and on sotalol so not able to use fluoroquinolones without additional unnecessary risk) and given appropriate outpatient instructions. Lab Data Attestation: I reviewed the patient's lab results. Labs: Laboratory Results - last 24 hr 11/22/22 11/22/22 11/22/22 09:50 09:50 10:58 WBC 7.7 RBC 3.93 L Hgb 10.7 L Hct 34.2 L MCV 87.0 MCH 27.2 MCHC 31.3 L RDW Std Deviation 57.1 H RDW Coeff of Jose Alberto 17.8 H Plt Count 223 MPV 9.2 Immature Gran % (Auto) 0.400 Neut % (Auto) 69.7 Lymph % (Auto) 17.0 L [place] % (Auto) 8.9 Eos % (Auto) 3.6 Baso % (Auto) 0.4 Absolute Neuts (auto) 5.4 Absolute Lymphs (auto) 1.31 Nucleated RBC % 0 Sodium 135 L Potassium 4.3 Chloride 101 Carbon Dioxide 28.0 Anion Gap 6 BUN 18 Creatinine 1.18 Estim Creat Clear Calc 44.10 Est GFR (MDRD) Af Amer 75 Est GFR (MDRD) Non-Af 62 BUN/Creatinine Ratio 15.3 Glucose 120 H Calcium 9.2 Total Bilirubin 0.80 AST 18 ALT 8 L Alkaline Phosphatase 91 Total Protein 6.7 Albumin 3.3 Globulin 3.4 Albumin/Globulin Ratio 1.0 Lipase 28 Urine Color Yellow Urine Clarity Cloudy Urine pH 6.5 Ur Specific [place] 1.010 Urine Protein 100 H Urine Glucose (UA) Normal Urine Ketones Negative Urine Occult Blood 150 H Urine Nitrite Negative Urine Bilirubin Negative Urine Urobilinogen Normal Ur Leukocyte Esterase 500 H Urine RBC 0-5 SEEN Urine WBC >100 SEEN Ur Squamous Epith Cells 0-5 SEEN Urine Bacteria 3+ Urine Mucus 0 SEEN Radiography Diagnostic Testing: Clinical Impression(s) from Imaging Studies Abdomen/Pelvis CT 11/22/22 09:44 IMPRESSION: Bladder wall thickening concerning for cystitis. Enlarged prostate gland. Bladder diverticula. Atherosclerosis. Bibasilar atelectasis and/or scarring. Limited images of the lung bases demonstrate findings concerning for pulmonary fibrosis. Evidence of prior granulomatous disease. Electronically Signed: Anna Cortes MD at 10:54 EDT , Discharge Plan Triage Chief Complaint: Abd Pain ED Provider: Asif Armendariz Dx/Rx/DC Orders Clinical Impression: Intermittent generalized abdominal pain, Acute cystitis without hematuria Instructions: ED Bladder Infection, Male (Adult) Prescriptions: New cephalexin [cephalexin] 500 mg capsule 500 mg PO TID Qty: 21 0RF No Action aspirin [Adult Low Dose Aspirin] 81 mg tablet,delayed release (DR/EC) 81 mg PO QDAY omeprazole 40 mg capsule,delayed release(DR/EC) 40 mg PO DAILY albuterol sulfate 0.63 mg/3 mL solution for nebulization 0.63 mg inhalation Q6H PRN (Reason: Shortness Of Breath Or Wheezing) docusate sodium 100 mg capsule 100 mg PO BID guaifenesin 600 mg tablet extended release 12hr 600 mg PO BID senna 8.6 mg capsule 8.6 mg PO BID tamsulosin 0.4 mg capsule 0.4 mg PO QHS therapeutic multivitamin Tablet 1 tab PO DAILY acetaminophen [Tylenol Extra Strength] 500 mg tablet 500 mg PO .q8hr PRN (Reason: Pain) torsemide 20 mg tablet 20 mg PO DAILY Qty: 60 3RF Eliquis 5 mg tablet 5 mg PO BID Qty: 180 3RF atorvastatin 20 mg tablet See Rx Instructions .ROUTE .COMPLEX Qty: 45 3RF Dose Instruction: TAKE 1 TABLET EVERY OTHER DAY Rx Instructions: TAKE 1 TABLET EVERY OTHER DAY potassium chloride 10 mEq capsule, extended release 10 meq PO DAILY Qty: 90 3RF sotalol 80 mg tablet 80 mg PO BID Qty: 180 3RF Primary Care Provider: Catherine Becker Referrals: Catherine Becker MD [Primary Care Provider] - 3-5 Days Disposition Disposition: Home, Self Care
[2022-11-22] MEDS: 0.9% Normal Saline 1,000 ML 125 ML IV (09:53)
[2022-11-22 10:06] LABS: Absolute Lymphocyte Count 1.31 X10^3/uL (0.83-4.51); Absolute Neutrophil Count 5.4 X10^3/uL (2.0-7.7); Basophil# 0.03 X10^3/uL; Basophil% 0.4 % (0-1); Eosinophil# 0.28 X10^3/uL; Eosinophils% 3.6 % (0-5); Hematocrit 34.2 % (40-54); Hemoglobin 10.7 g/dL (13.0-16.5); Lymphocyte # 1.31 X10^3/ul (0.83-4.51); Mean Corp Hgb Conc 31.3 g/dL (32-36); Mean Corpuscular Hgb 27.2 pg (27.0-32.0); Mean Platelet Vol. 9.2 fl (6.2-12.0); Monocyte# 0.69 X10^3/uL; Monocyte% 8.9 % (0-10); NRBC Flagged by Analyzer 0 % (0-5); Neutrophil # 5.38 X10^3/uL (2.7-7.7); Neutrophil % 69.7 % (47-70); Platelet Count 223 K/mm3 (150-450); RBC Distribution Width CV 17.8 % (11.6-14.6); RBC Distribution Width SD 57.1 fl (35.1-43.9); Red Blood Count 3.93 M/mm3 (4.6-6.2); White Blood Count 7.7 K/mm3 (4.4-11.0)
[2022-11-22 10:18] LABS: AST(SGOT) 18 U/L (15-37); Alanine Aminotransfer ALT/SGPT 8 U/L (16-61); Albumin, Serum 3.3 g/dL (3.2-5.0); Alkaline Phosphatase 91 U/L (45-117); Anion Gap 6 (5-15); BUN 18 mg/dL (7-18); BUN/Creat Ratio 15.3 RATIO (10-20); Calcium,Total 9.2 mg/dL (8.5-10.1); Chloride 101 mmol/L (98-107); Creatinine, Serum 1.18 mg/dL (0.70-1.30); EST Glomerular Filtration Rate 62 mL/min (>60); Est Glom Filt Rate - Afr Amer 75 mL/min (>60); Globulin 3.4 g/dL (2.2-4.2); Glucose 120 mg/dL (74-106); Lipase 28 U/L (13-75); Potassium 4.3 mmol/L (3.5-5.1); Protein, Total 6.7 g/dL (6.4-8.2); Sodium Level 135 mmol/L (136-145)
[2022-11-22 11:03] LABS: Mucous, Urine 0 SEEN /hpf (<or=2+)
[2022-11-22 11:04] LABS: Color, Urine Yellow (Yellow); Glucose, Dipstick Normal (Normal); Ketone-Dipstick Negative (Negative); Leukocyte Esterase-Dipstick 500 /ul (Negative); Nitrite-Dipstick Negative (Negative); Occult Blood-Urine 150 /ul (Negative); Protein-Dipstick 100 mg/dl (Negative); Urine Bilirubin Dipstick Negative (Negative); Urine Clarity Cloudy (Clear); Urine Urobilinogen Normal (Normal); Urine pH 6.5 (5.0 - 8.0)
[2022-11-22 11:09] LABS: White Blood Cells >100 SEEN /hpf (0-5)
[2022-11-22 11:11] LABS: Bacteria 3+ /hpf (None Seen); Red Blood Cells-Urine 0-5 SEEN /hpf (0-5); Squamous Epithelial Cells - UA 0-5 SEEN /hpf (0-5)
[2022-11-22] MEDS: Ceftriaxone 1 GM/50 ML BAG IV (11:58)
[2022-11-22 12:40] VITALS: BP 126/37; PULSE 58; RESP 18; O2SAT 97
[2022-11-22 12:47] VITALS: PULSE 58; RESP 18; O2SAT 98
== END 2022-11-22 12:47 | disposition home or self-care (01) ==
PROVIDERS: Emergency Provider Emergency Medicine; PCP Internal Medicine; Visit Provider Emergency Medicine
DX: N30.00 Acute cystitis without hematuria (principal); J44.9 Chronic obstructive pulmonary disease, unspecified; I11.0 Hypertensive heart disease with heart failure; I50.32 Chronic diastolic (congestive) heart failure; I42.1 Obstructive hypertrophic cardiomyopathy; I73.9 Peripheral vascular disease, unspecified; I48.91 Unspecified atrial fibrillation; I25.10 Atherosclerotic heart disease of native coronary artery without angina pectoris; Z87.891 Personal history of nicotine dependence; E78.00 Pure hypercholesterolemia, unspecified; R19.7 Diarrhea, unspecified; I25.2 Old myocardial infarction; G47.33 Obstructive sleep apnea (adult) (pediatric)
CPT/HCPCS: 74177; 80053; 81001; 83690; 85025; 87086; 87088; 87186; 99285; J7030; Q9967

== ENCOUNTER 2024-05-13 10:42 | Emergency (ER) | payer MEDICARE, OTHER, SELFPAY ==
[2024-05-13 10:43] VITALS: BP 160/69; PULSE 81; RESP 22; TEMP 36.6; O2SAT 98
[2024-05-13 10:45] VITALS: BP 160/69; PULSE 80; RESP 20; TEMP 36.6; O2SAT 98
[2024-05-13 10:53] VITALS: BMI 28.8
--- NOTE | 2024-05-13 11:12 | EDS_ITS ---
HPI History of Present Illness Chief Complaint: Edema Informant: patient Narrative Narrative: Patient is an 89 year old male with history of HOCM, congestive heart failure, status post TAVR, COPD and obstructive sleep apnea presenting with neck swelling. Patient was seen at urgent care yesterday because he was having pain and pulling of the right side of his face in front of his ear. He was started on amoxicillin. He took a dose. He then developed swelling underneath his neck. He notes that even before taking his morning antibiotic he was having a harder time swallowing his pills than normal. He has redness and swelling or any of his chin which he is never had before. He notes that his ear is feeling little bit better today. Denies any difficulty breathing. Is not drooling. Denies any acute shortness of breath. Did his normal breathing treatments. No other complaints or concerns reported at this time. 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 Colon cancer Bronchiectasis History of non-ST elevation myocardial infarction (NSTEMI) (07/01/08) History of PSVT (paroxysmal supraventricular tachycardia) Nonrheumatic aortic (valve) stenosis SUDEEP (obstructive sleep apnea) Stage 2 moderate COPD by GOLD classification Colon polyp Bilateral carotid artery stenosis Obesity COPD (chronic obstructive pulmonary disease) Essential hypertension Pure hypercholesterolemia Atherosclerosis of [place] coronary artery of [place] heart without angina pectoris Bilateral leg edema Frequent PVCs CAP (community acquired pneumonia) Home Medications ?Medication ?Instructions ?Recorded ?Last Taken ?Type aspirin 81 mg tablet,delayed 81 mg PO QDAY 12/02/17 09/10/22 History release (Adult Low Dose Aspirin) omeprazole 40 mg capsule,delayed 40 mg PO DAILY 11/23/21 Unknown History release docusate sodium 100 mg capsule 100 mg PO BID 07/24/22 Unknown History guaifenesin 600 mg tablet, 600 mg PO BID 07/24/22 Unknown History extended release 12 hr sennosides 8.6 mg capsule (senna) 8.6 mg PO BID 07/24/22 Unknown History tamsulosin 0.4 mg capsule 0.4 mg PO QHS 07/24/22 Unknown History albuterol sulfate 2.5 mg/3 mL 2.5 mg continuous nebulization 12/27/22 Unknown History (0.083 %) solution for nebulization ONCE PRN shortness of breath or wheezing torsemide 20 mg tablet 20 mg PO DAILY #90 tabs 02/06/24 Unknown Rx atorvastatin 20 mg tablet See Rx Instructions .Route 02/28/24 Unknown Rx .COMPLEX #45 tabs potassium chloride 10 mEq 10 meq PO DAILY #90 caps 03/23/24 Unknown Rx capsule,extended release sotalol 80 mg tablet 80 mg PO BID #180 tabs 03/23/24 Unknown Rx apixaban 5 mg tablet (Eliquis) 5 mg PO BID #180 tabs 04/22/24 Unknown Rx Allergy/AdvReac Type Severity Reaction Status Date / Time niacin Allergy Hives Verified 05/13/24 10:43 Sulfa (Sulfonamide Allergy Hives Verified 05/13/24 10:43 Antibiotics) Family History Father CVA (cerebral vascular accident) COPD (chronic obstructive pulmonary disease) Mother Cancer Son Hypertension Surgical History S/P TAVR (transcatheter aortic valve replacement) (~06/20/22) History of closure of ileostomy (04/28/20) Status post Leah's procedure (02/01/20) History of left heart catheterization (12/15/21) History of coronary artery stent placement (05/09/07) History of right-sided carotid endarterectomy (06/2008) History of shoulder surgery Social History Smoking Status: Former smoker Tobacco: How many years used: 22 how long ago did patient quit smokin second hand exposure: No alcohol intake: former substance use type: does not use caffeine: Yes Type: coffee what type of physical activity do you participate in: none seatbelt use: always do you feel safe at home: Yes ROS ROS ED Constitutional Constitutional ED: Denies chills or fever(s) Eyes Eyes: Denies change in vision ENT ENT ED: Reports ear pain right, sore throat and other Details: Neck swelling Cardiovascular Cardiovascular: Denies chest pain Respiratory/Chest Respiratory/Chest: Denies cough or dyspnea Gastrointestinal Gastrointestinal: Denies nausea or vomiting Musculoskeletal Musculoskeletal: Denies arthralgias or myalgias Integumentary Reports rash Neurologic Neurologic: Denies paresthesias or weakness Hematologic/Lymphatic Hematologic/Lymphatic: Reports easy bleeding, easy bruising and other Details: On Eliquis EXAM Physical Exam Const Vital Signs: 05/13/24 10:43 05/13/24 10:45 05/13/24 10:52 Temperature 97.8 F 97.8 F Temperature Source Temporal Temporal Pulse Rate 81 80 Respiratory Rate 22 H 20 H Respiratory Effort Normal Non-Labored Respiratory Pattern Normal Blood Pressure 160/69 H 160/69 H Blood Pressure Mean 99 99 Pulse Ox 98 98 Oxygen Delivery Method Room Air Room Air 05/13/24 12:19 05/13/24 12:57 05/13/24 13:58 Temperature 97.8 F 97.4 F L Temperature Source Oral Pulse Rate 67 57 L 70 Respiratory Rate 20 H 22 H Respiratory Effort Respiratory Pattern Blood Pressure 122/45 H 142/50 H 149/53 H Blood Pressure Mean 70 80 85 Pulse Ox 92 96 Oxygen Delivery Method Room Air Positive well nourished and well developed General Appearance ED: well developed and NAD HEENT Reports TM's clear and moist mucous membranes HEENT Narrative: Edentulous. Patient does have dental implants in place lower front teeth. Normal oropharynx. Sublingual mucosa is soft with no elevation. There is some mild swelling with no tenderness of the right preauricular area. There is some mild associated erythema. Patient has soft tissue swelling of the submandibular area with some mild over lying erythema and warmth. No associated induration or fluctuance. Tympanic Membrane ED: Yes TM's clear Eyes PERRL Neck supple Neck Narrative: Submandibular diffuse swelling present. No stridor. Chest Wall inspection of chest normal Resp normal respiratory effort Resp Narrative: Coarse breath sounds with scattered rhonchi. Crackles at the bases bilateral. Mild end expiratory wheeze scattered. GI normal to inspection, nondistended, normoactive bowel sounds, non-tender and non-distended Extremity normal to inspection General Extremety ED: Negative for edema General Extremity: Negative for edema Neuro Sensorium / Orientation: alert Motor Exam: Negative for general weakness Psych mental status grossly normal Skin Skin Narrative: Subtle erythema of the neck/submandibular area MDM MDM MDM Narrative Medical decision making narrative: Patient is evaluated for sudden onset of neck swelling. He is nontoxic- appearing and actually overall is quite well-appearing. He has no signs of airway compromise at this time. No intraoral edema or swelling appreciated. No stridor. Differential includes sialoadenitis, Oziel angina, cellulitis, dependent edema. Will obtain CT soft tissue neck for further evaluation at this time. CT of the neck shows diffuse soft tissue swelling or least the mandible diffuse soft tissue prominence enlargement of the right parotid gland on the right submandibular gland. Salivary adenitis should be ruled out. His presentation is consistent with salivary adenitis. I did reevaluate the patient with no progression of his swelling or redness. He continues to be well-appearing. No airway involvement. Case is discussed with ENT on-call, Dr. Sr. He is agreeable with continuing the Augmentin (I did confirm that the patient is on Augmentin as the has a medicine at the bedside) and giving this more time. Will encourage use of sialagogues. Will follow-up as needed with ENT. Is given return precautions. Patient agreeable plan of care. Patient discharged home in stable condition with return precautions Radiography Diagnostic Testing: Clinical Impression(s) from Imaging Studies Soft Tissue Neck CT 05/13/24 11:52 IMPRESSION: Diffuse soft tissue swelling underlying the mandible with diffuse soft tissue prominence and enlargement of the right parotid gland in the right submandibular gland. Salivary adenitis should BE ruled out. Electronically Signed: Emanuel Cannon MD at 12:34 EDT Reading Location ID and State: [facility] / [place] , Service support , Discharge Plan Triage Chief Complaint: Edema ED Provider: Angela Rodriguez Dx/Rx/DC Orders Clinical Impression: Salivary gland adenitis, Neck swelling Instructions: ED Salivary Gland Infection, ED Salivary Gland Swelling [facility] Prescriptions: No Action aspirin [Adult Low Dose Aspirin] 81 mg tablet,delayed release (DR/EC) 81 mg PO QDAY omeprazole 40 mg capsule,delayed release(DR/EC) 40 mg PO DAILY docusate sodium 100 mg capsule 100 mg PO BID guaifenesin 600 mg tablet extended release 12hr 600 mg PO BID senna 8.6 mg capsule 8.6 mg PO BID tamsulosin 0.4 mg capsule 0.4 mg PO QHS albuterol sulfate 2.5 mg /3 mL (0.083 %) solution for nebulization 2.5 mg continuous nebulization ONCE PRN (Reason: shortness of breath or wheezing) torsemide 20 mg tablet 20 mg PO DAILY Qty: 90 3RF atorvastatin 20 mg tablet See Rx Instructions .ROUTE .COMPLEX Qty: 45 3RF Dose Instruction: TAKE 1 TABLET EVERY OTHER DAY Rx Instructions: TAKE 1 TABLET EVERY OTHER DAY sotalol 80 mg tablet 80 mg PO BID Qty: 180 3RF potassium chloride 10 mEq capsule, extended release 10 meq PO DAILY Qty: 90 3RF Eliquis 5 mg tablet 5 mg PO BID Qty: 180 3RF Primary Care Provider: Catherine Becker Referrals: King Clement MD [Med Staff - Active Staff] - 1-2 Weeks Catherine Becker MD [Primary Care Provider] - Activity Restrictions/Additional Instructions: Please suck on sour candies such as lemon drops to help increase secretions from your salivary glands. Take the antibiotics as prescribed. Your swelling might worsen temporarily after eating or sucking on things. If there is no improvement after 2 weeks please return the emergency room. If you develop fever, difficulty swallowing or significant worsening of your symptoms please return to the emergency room. Your CT showed inflammation around the parotid glands and swelling. You are on the appropriate antibiotics already. Print Language: Syriac Disposition Disposition: Home, Self Care Discharge Date/Time: 05/13/24 14:00
--- NOTE | 2024-05-13 11:52 | CT_ITS ---
STUDY: CT SOFT TISSUE NECK WITHOUT CONTRAST REASON FOR EXAM: Male, 89 years old. Submandibular swelling, right facial swelling RADIATION DOSAGE (If Supplied By Facility): CTDIvol = ( 16.54 ) mGy, DLP = ( 520.66 ) mGycm TECHNIQUE: The patient was scanned in a multi-detector CT scanner. High resolution transaxial imaging was performed without the administration of intravenous contrast material. Sagittal and coronal images were reconstructed. Individualized dose optimization techniques were used for this CT. COMPARISON: None. FINDINGS: Diffuse skin thickening in the increased markings in the subcutaneous fat underlying the mandible on the right and left side of the neck. Diffuse enlargement of the right parotid gland as well as diffuse enlargement of the right submandibular gland. Soft tissue prominence in the submandibular region. Normal bilateral parapharyngeal spaces. Normal bilateral carotid spaces. Atherosclerotic plaque formation of the internal carotid arteries at their origin. Normal bilateral sublingual and submandibular glands and spaces. Normal visualized nasopharynx. Normal retropharyngeal space. Normal perivertebral space. Normal visualized bilateral faucial tonsils. The visualized tongue, tongue base and oropharynx are normal. There are minimally enlarged lymph nodes of the neck, with preservation of normal fabio architecture, consistent with a reactive lymph hyperplasia. There is no demonstrated solid or cystic mass lesion. Normal epiglottis, bilateral vallecula and hypopharynx. The pre-epiglottic and paraglottic adipose spaces are normal. Normal visualized bilateral piriform sinuses, aryepiglottic folds, vocal cords, and arytenoid-cricoid articulations. Normal subglottic trachea. Normal bilateral lobes of the thyroid gland. Normal visualized pulmonary apices. Partial opacification of the inferior aspects of both maxillary sinuses. There is multilevel degenerative changes of the cervical spine. Atherosclerotic plaque formation of the aortic arch. CT/Soft Tissue Neck without Contr IMPRESSION: Diffuse soft tissue swelling underlying the mandible with diffuse soft tissue prominence and enlargement of the right parotid gland in the right submandibular gland. Salivary adenitis should BE ruled out. Electronically Signed: Emanuel Cannon MD at 12:34 EDT ,
[2024-05-13 12:19] VITALS: BP 122/45; PULSE 67; RESP 20; TEMP 36.6; O2SAT 92
[2024-05-13 12:57] VITALS: BP 142/50; PULSE 57
[2024-05-13 13:58] VITALS: BP 149/53; PULSE 70; RESP 22; TEMP 36.3; O2SAT 96
== END 2024-05-13 14:00 | disposition home or self-care (01) ==
PROVIDERS: Emergency Provider Emergency Medicine; PCP Internal Medicine; Visit Provider Emergency Medicine
DX: K11.20 Sialoadenitis, unspecified (principal); I11.0 Hypertensive heart disease with heart failure; I50.32 Chronic diastolic (congestive) heart failure; J44.9 Chronic obstructive pulmonary disease, unspecified; I42.1 Obstructive hypertrophic cardiomyopathy; E78.00 Pure hypercholesterolemia, unspecified; Z95.2 Presence of prosthetic heart valve; R22.1 Localized swelling, mass and lump, neck; Z87.891 Personal history of nicotine dependence; G47.33 Obstructive sleep apnea (adult) (pediatric); I25.10 Atherosclerotic heart disease of native coronary artery without angina pectoris; Z96.5 Presence of tooth-root and mandibular implants
CPT/HCPCS: 70490; 99282

== ENCOUNTER → 2024-12-29 | Outpatient (CLI) | payer MEDICARE, OTHER, SELFPAY ==
--- NOTE | 2024-12-29 07:25 | ECHOCS_ITS ---
Reason For Study Reason For Study: TAVR Procedure This was a 2D Doppler, Color Flow transthoracic echocardiogram. The study was technically difficult. Contrast injection was performed. Exam performed in department. Left Ventricle Normal LV size. The left ventricular ejection fraction is 50 %. There is borderline global hypokinesis of the left ventricle. Right Ventricle Normal RV size. Normal systolic function. Atria Normal left atrium. Normal right atrium. Mitral Valve There is moderate mitral annular calcification. Mild (1+) eccentric mitral valve insufficiency. Tricuspid Valve Normal tricuspid valve. Mild tricuspid valve insufficiency. Aortic Valve Peak aortic valve gradient 18 mmHg. Mean aortic valve gradient 8 mmHg. Mild (1+) aortic valve insufficiency. Bioprosthetic aortic valve. Pulmonic Valve Normal pulmonic valve. Mild-Moderate (1-2+) pulmonic valve insufficiency. Great Vessels Moderately calcified aortic root. The pulmonary artery is normal size. Inferior vena cava collapse with respiration. Pericardium/Pleural No pericardial effusion. Medication 22 gauge I.V. with prn adaptor inserted into left arm. Diluted definity 2.5ml given slow IV push to enhance endocardial definition. MMode/2D Measurements & Calculations LVIDd: 5.3 cm IVSd: 1.2 cm LVOT diam: 1.9 cm LVIDs: 4.0 cm LVPWd: 1.2 cm RVDd: 3.3 cm FS: 24.7 % LVOT area: 2.8 cm2 Ao root diam: 3.1 cm LAV(MOD-bp): 69.6 ml LVAd ap4: 44.8 cm2 LAV(MOD-bp) Indexed: 36.9 ml/m2 LVLd ap4: 9.5 cm LAV(MOD-sp2): 86.2 ml EDV(MOD-sp4): 191.7 ml LAV(MOD-sp4): 53.7 ml EDV(sp4-el): 178.8 ml LVAs ap4: 29.8 cm2 LVLs ap4: 8.7 cm ESV(MOD-sp4): 98.7 ml ESV(sp4-el): 86.8 ml EF(MOD-sp4): 48.5 % EF(sp4-el): 51.5 % SV(MOD-sp4): 93.0 ml SV(sp4-el): 92.1 ml LA A4 area: 19.5 cm2 SI(MOD-sp4): 49.3 ml/m2 LA dimension(2D): 6.3 cm RA A4 area: 16.0 cm2 TAPSE: 1.1 cm Time Measurements MV dec time: 0.13 sec Doppler Measurements & Calculations MV E max andrew: 111.6 cm/sec Lat Peak E' Andrew: 6.5 cm/sec Med Peak E' Andrew: 4.2 cm/sec MV A max andrew: 72.2 cm/sec E/E' lat: 17.3 E/E' med: 26.6 MV E/A: 1.5 MV V2 max: 112.4 cm/sec MV P1/2t max andrew: 112.8 cm/sec Ao V2 max: 211.1 cm/sec MV max P.1 mmHg MV P1/2t: 52.0 msec Ao max P.0 mmHg MV V2 mean: 51.6 cm/sec MV dec slope: 634.7 cm/sec2 Ao V2 mean: 132.5 cm/sec MV mean P.4 mmHg MVA(P1/2t): 4.2 cm2 Ao mean P.3 mmHg MV V2 VTI: 34.8 cm Ao V2 VTI: 45.3 cm MVA(VTI): 1.5 cm2 AV (velocity ratio): 0.41 ANEL(I,D): 1.1 cm2 ANEL(V,D): 1.3 cm2 AI max andrew: 337.1 cm/sec LV V1 max: 99.9 cm/sec MR max andrew: 463.2 cm/sec AI max P.6 mmHg LV V1 max P.0 mmHg MR max P.8 mmHg LV V1 mean P.8 mmHg AI dec slope: 168.7 cm/sec2 LV V1 mean: 63.3 cm/sec AI P1/2t: 585.2 msec LV V1 VTI: 18.5 cm SV(LVOT): 50.9 ml PA V2 max: 87.4 cm/sec PA V2 mean: 60.8 cm/sec PI dec slope: 249.0 cm/sec2 ECHO/Echo Complete W/ Contrast Interpretation Summary Normal LV size. The left ventricular ejection fraction is 50 %. There is borderline global hypokinesis of the left ventricle. Mild (1+) eccentric mitral valve insufficiency. Mean aortic valve gradient 8 mmHg. Bioprosthetic aortic valve. Apical cardiomyopathy Ordering Physician: Lane Arita Referring Physician: Lane Arita Performed By: Nima Peters RCS
== END | disposition home or self-care (01) ==
LOC: CVS 07:25
PROVIDERS: PCP Internal Medicine; Referring Provider Internal Medicine Cardiovascular Disease; Visit Provider Internal Medicine Cardiovascular Disease
DX: Z95.2 Presence of prosthetic heart valve (principal)
CPT/HCPCS: 93306; C8929

== ENCOUNTER 2025-03-18 08:00 | Inpatient (IN) | payer MEDICARE, OTHER, SELFPAY ==
[2025-03-18] VITALS (11 sets, daily range): BP systolic 150–187; BP diastolic 52–76; PULSE 76–96; RESP 14–21; TEMP 35.7–36.7; O2SAT 88–100; BMI 30.4; BMI 27.6
--- NOTE | 2025-03-18 08:11 | ED.VIS.FALL ---
HPI HPI - Fall History of Present Illness Chief Complaint: Fall Informant: patient and spouse/S.O. Occured/Mechanism Occurred: Today Mechanism/Context: Yes same level fall Narrative: Patient fell out of bed Pain/Injury Pain Location: head and face Quality of Pain: Aching Worsened by: Nothing Relieved by: Nothing Associated Symptoms Associated Symptoms: Positive for Weakness (Generalized) and Loss of consciousness; Negative for Parasthesias Length of loss of consciousness: Few seconds Narrative Narrative: Patient presents after a fall that occurred today. states patient was sitting up at the side of the bed.. states that she went into another room and heard him fall. states the patient fell forward and she found him on the floor. states patient was unconscious for a few seconds but then woke up. Patient admits to some generalized weakness. Patient states he has been having a cough with some green sputum. Patient states he has been feeling fatigued over the past several days. states patient has been taking Cipro for the past 5 days for his cough. 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 Colon cancer Bronchiectasis History of non-ST elevation myocardial infarction (NSTEMI) (07/01/08) History of PSVT (paroxysmal supraventricular tachycardia) Nonrheumatic aortic (valve) stenosis SUDEEP (obstructive sleep apnea) Stage 2 moderate COPD by GOLD classification Colon polyp Bilateral carotid artery stenosis Obesity COPD (chronic obstructive pulmonary disease) Essential hypertension Pure hypercholesterolemia Atherosclerosis of [place] coronary artery of [place] heart without angina pectoris Bilateral leg edema Frequent PVCs CAP (community acquired pneumonia) Home Medications ?Medication ?Instructions ?Recorded ?Last Taken ?Type aspirin 81 mg tablet,delayed 81 mg PO QDAY 12/02/17 09/10/22 History release (Adult Low Dose Aspirin) omeprazole 40 mg capsule,delayed 40 mg PO DAILY 11/23/21 Unknown History release docusate sodium 100 mg capsule 100 mg PO BID 07/24/22 Unknown History sennosides 8.6 mg capsule (senna) 8.6 mg PO BID 07/24/22 Unknown History tamsulosin 0.4 mg capsule 0.4 mg PO QHS 07/24/22 Unknown History albuterol sulfate 2.5 mg/3 mL 2.5 mg continuous nebulization 12/27/22 Unknown History (0.083 %) solution for nebulization ONCE PRN shortness of breath or wheezing apixaban 5 mg tablet (Eliquis) 5 mg PO BID #180 tabs 04/22/24 Unknown Rx guaifenesin 600 mg tablet, 1,200 mg PO DAILY 05/14/24 Unknown History extended release 12 hr torsemide 20 mg tablet 20 mg PO DAILY #90 TABLETS 02/04/25 Unknown Rx atorvastatin 20 mg tablet See Rx Instructions .Route 02/22/25 Unknown Rx .COMPLEX #45 tabs potassium chloride 10 mEq 10 meq PO DAILY #90 caps 03/16/25 Unknown Rx capsule,extended release sotalol 80 mg tablet 80 mg PO BID #180 tabs 03/16/25 Unknown Rx Allergy/AdvReac Type Severity Reaction Status Date / Time niacin Allergy Hives Verified 12/01/24 14:21 Sulfa (Sulfonamide Allergy Hives Verified 12/01/24 14:21 Antibiotics) Family History (Updated 12/14/24 @ 13:41 by China Cuevas) Father CVA (cerebral vascular accident) COPD (chronic obstructive pulmonary disease) Mother Cancer Son Hypertension Other S/P TAVR (transcatheter aortic valve replacement) Surgical History S/P TAVR (transcatheter aortic valve replacement) (~06/20/22) History of closure of ileostomy (04/28/20) Status post Leah's procedure (02/01/20) History of left heart catheterization (12/15/21) History of coronary artery stent placement (05/09/07) History of right-sided carotid endarterectomy (06/2008) History of shoulder surgery Social History Smoking Status: Former smoker Tobacco: How many years used: 22 how long ago did patient quit smokin second hand exposure: No alcohol intake: former substance use type: does not use caffeine: Yes Type: coffee what type of physical activity do you participate in: none seatbelt use: always do you feel safe at home: Yes ROS ROS ED Constitutional Constitutional ED: Denies chills or fever(s) Eyes Eyes: Denies blurry vision or change in vision ENT ENT ED: Reports rhinorrhea; Denies sore throat Cardiovascular Cardiovascular: Denies chest pain or palpitations Respiratory/Chest Respiratory/Chest: Reports cough, dyspnea and sputum Gastrointestinal Gastrointestinal: Denies nausea or vomiting Genitourinary Genitourinary ED: Reports dysuria; Denies hematuria Musculoskeletal Musculoskeletal: Denies back pain or neck pain Integumentary Reports Abrasions; Denies abscess or rash Neurologic Neurologic: Reports headache(s) and weakness Allergic/Immunologic Allergic/Immunologic ED: Denies mouth swelling or urticaria EXAM Physical Exam Const Vital Signs: 03/18/25 08:01 03/18/25 08:07 03/18/25 08:59 Temperature 96.3 F L Temperature Source Axillary Pulse Rate 83 80 Pulse Rate [Lying] Pulse Rate [Sitting (for 1 minute prior to obtaining)] Pulse Rate [Standing (for 1 minute prior to obtaining)] Respiratory Rate 21 H 16 Respiratory Effort Short of Breath Labored Respiratory Depth Shallow Respiratory Pattern Tachypnea Blood Pressure 185/76 H Blood Pressure [Lying] Blood Pressure [Sitting (for 1 minute prior to obtaining)] Blood Pressure [Standing (for 1 minute prior to obtaining)] Blood Pressure Mean 112 Blood Pressure Mean [Lying] Blood Pressure Mean [Sitting (for 1 minute prior to obtaining)] Blood Pressure Mean [Standing (for 1 minute prior to obtaining)] Pulse Ox 88 Oxygen Delivery Method Room Air Nasal Cannula Oxygen Flow Rate (L/min) 2 03/18/25 09:03 03/18/25 10:00 03/18/25 10:45 Temperature 96.9 F L 96.9 F L Temperature Source Axillary Axillary Pulse Rate 77 76 Pulse Rate [Lying] 79 Pulse Rate [Sitting (for 1 minute prior to obtaining)] 78 Pulse Rate [Standing (for 1 minute prior to obtaining)] 96 Respiratory Rate 17 17 Respiratory Effort Respiratory Depth Respiratory Pattern Blood Pressure 176/70 H 178/67 H Blood Pressure [Lying] 184/69 H Blood Pressure [Sitting (for 1 minute prior to obtaining)] 163/67 H Blood Pressure [Standing (for 1 minute prior to obtaining)] 174/61 H Blood Pressure Mean 105 104 Blood Pressure Mean [Lying] 107 Blood Pressure Mean [Sitting (for 1 minute prior to obtaining)] 99 Blood Pressure Mean [Standing (for 1 minute prior to obtaining)] 98 Pulse Ox 99 99 Oxygen Delivery Method Nasal Cannula Nasal Cannula Oxygen Flow Rate (L/min) 2 2 Positive well nourished and well developed Constitutional Narrative: BMI is 30.5. General Appearance ED: well developed and NAD HEENT HEENT Narrative: There are superficial abrasions of the left forehead, bridge of the nose, and upper lip. There is no active bleeding noted. There is no bony crepitance or step-off. Eyes PERRL and EOMs intact bilaterally Neck full ROM and supple Resp normal respiratory effort Auscultation: rhonchi and wheezes expiratory wheezes Cardio regular rate and regular rhythm GI non-tender and non-distended Palpation: soft Neuro oriented x3, CN's II-XII intact bilaterally, moves all extremities, no focal motor deficits and no sensory deficits noted Opal Coma Scale: document GCS findings Spontaneous Obeys Commands Oriented 15 Sensorium / Orientation: alert Motor Exam: strength 5/5 throughout Psych mental status grossly normal and thought process normal MDM MDM MDM Narrative Medical decision making narrative: Differential diagnosis includes intracranial bleeding, closed head injury, pneumonia, bronchitis, viral upper respiratory infection anemia, electrolyte abnormality, urinary tract infection, and debility. CT scan of the brain will be obtained to assess for intracranial bleeding. Chest x-ray will be obtained to assess for pneumonia and bronchitis. EKG will be obtained to assess for cardiac dysrhythmia and cardiac ischemia. CBC will be obtained to assess for leukocytosis and anemia. Basic metabolic profile will be obtained to assess for electrolyte abnormality and renal function. High-sensitivity troponin will be obtained to assess for cardiac ischemia. 2-hour repeat high-sensitivity troponin will be obtained to assess for ongoing cardiac ischemia. Urinalysis will be obtained to assess for urinary tract infection and hematuria. Lab Data Attestation: I reviewed the patient's lab results. Lab results narrative: CBC was reviewed. There is a mild anemia with a hemoglobin 10.8 and hematocrit of 33.5. The remainder is within normal limits. Basic metabolic profile was reviewed. Sodium was low at 116 and chloride was low at 81. Anion gap was normal at 11. Glucose was slightly elevated at 116. Initial high-sensitivity troponin was repeated and was slightly elevated at 42. 2-hour repeat high-sensitivity troponin was reviewed and was improved at 38. Serum lactate was reviewed and was normal at 1.2. Urinalysis was reviewed. Occult blood was 250. There are greater than 100 red blood cells noted. Labs: Laboratory Results - last 24 hr 03/18/25 03/18/25 03/18/25 08:15 08:40 10:25 WBC 9.7 RBC 4.21 L Hgb 10.8 L Hct 33.5 L MCV 79.6 L MCH 25.7 L MCHC 32.2 RDW Std Deviation 46.5 H RDW Coeff of Jose Alberto 16.3 H Plt Count 339 MPV 8.4 Immature Gran % (Auto) 1.000 H Neut % (Auto) 77.4 H Lymph % (Auto) 9.1 L Cannon % (Auto) 9.4 Eos % (Auto) 2.9 Baso % (Auto) 0.2 Absolute Neuts (auto) 7.5 Absolute Lymphs (auto) 0.88 Nucleated RBC % 0 Sodium 116 L* Potassium 4.3 Chloride 81 L Carbon Dioxide 24.6 Anion Gap 11 BUN 10 Creatinine 0.77 Estim Creat Clear Calc 64.21 Est GFR (MDRD) Non-Af 85 BUN/Creatinine Ratio 12.9 Glucose 116 H Lactic Acid 1.2 Calcium 8.6 Troponin T High Sens 42 H Troponin T Hi Sens 2 Hr 38 H Urine Color Urine Clarity Urine pH Ur Specific [place] Urine Protein Urine Glucose (UA) Urine Ketones Urine Occult Blood Urine Nitrite Urine Bilirubin Urine Urobilinogen Ur Leukocyte Esterase Urine RBC Urine WBC Ur Squamous Epith Cells Urine Bacteria Urine Mucus 03/18/25 10:35 WBC RBC Hgb Hct MCV MCH MCHC RDW Std Deviation RDW Coeff of Jose Alberto Plt Count MPV Immature Gran % (Auto) Neut % (Auto) Lymph % (Auto) Cannon % (Auto) Eos % (Auto) Baso % (Auto) Absolute Neuts (auto) Absolute Lymphs (auto) Nucleated RBC % Sodium Potassium Chloride Carbon Dioxide Anion Gap BUN Creatinine Estim Creat Clear Calc Est GFR (MDRD) Non-Af BUN/Creatinine Ratio Glucose Lactic Acid Calcium Troponin T High Sens Troponin T Hi Sens 2 Hr Urine Color Red Urine Clarity Cloudy Urine pH 6.0 Ur Specific [place] 1.020 Urine Protein 100 H Urine Glucose (UA) Normal Urine Ketones 15 H Urine Occult Blood 250 H Urine Nitrite Negative Urine Bilirubin Negative Urine Urobilinogen 1 H Ur Leukocyte Esterase 100 H Urine RBC > 100 SEEN Urine WBC 0 SEEN Ur Squamous Epith Cells 0 SEEN Urine Bacteria 0 SEEN Urine Mucus 0 SEEN Radiography Chest X-Ray - ED: 2 View, Read by ED Physician, Read by Radiologist and Chronic Changes Diagnostic Testing: Clinical Impression(s) from Imaging Studies Brain CT 03/18/25 08:35 IMPRESSION: CHRONIC CHANGES. NO ACUTE FINDINGS. Reading Location: [id number] Chest X-Ray 03/18/25 09:13 IMPRESSION: Cardiomegaly and CHF. Superimposed on chronic interstitial fibrosis. Reading Location: [facility] CT scan of the brain was obtained. There is no acute intracranial abnormality. This was interpreted by the radiologist and was also independently reviewed by myself. PA and lateral chest x-ray was obtained. There are 2 views. On my independent interpretation, lung max show chronic changes and pulmonary fibrosis. There is cardiomegaly. Bony thorax is normal. There is no acute process noted. Radiologist also interpreted the x-ray and agrees. EKG Initial EKG: Attestation: I personally reviewed and interpreted this EKG as follows: Interpretation: Sinus Rhythm (With occasional PVCs with a rate of 78) and Non-Specific ST Changes Comments: EKG was obtained. On my independent interpretation, it showed a normal sinus rhythm with a rate of 78. OH interval, QRS interval, and QTc intervals were all normal. [place] was normal. There are nonspecific ST-T wave changes. Prior EKG tracings: available for review Prior: Unchanged (09/10/2022) Treatment and Re-Evaluation Narrative: Patient was given a DuoNeb aerosol. Patient was given IV fluids. Patient was advised of his findings. Case was discussed with the hospitalist. He will admit the patient to PCU. Patient understood and was agreeable with the plan. All questions were answered. Discharge Plan Triage Chief Complaint: Fall ED Provider: Ga Meredith Dx/Rx/DC Orders Clinical Impression: Hyponatremia, Syncope and collapse, Closed head injury Prescriptions: No Action aspirin [Adult Low Dose Aspirin] 81 mg tablet,delayed release (DR/EC) 81 mg PO QDAY omeprazole 40 mg capsule,delayed release(DR/EC) 40 mg PO DAILY docusate sodium 100 mg capsule 100 mg PO BID senna 8.6 mg capsule 8.6 mg PO BID tamsulosin 0.4 mg capsule 0.4 mg PO QHS guaifenesin 600 mg tablet extended release 12hr 1,200 mg PO DAILY albuterol sulfate 2.5 mg /3 mL (0.083 %) solution for nebulization 2.5 mg continuous nebulization ONCE PRN (Reason: shortness of breath or wheezing) Eliquis 5 mg tablet 5 mg PO BID Qty: 180 3RF torsemide 20 mg tablet 20 mg PO DAILY Qty: 90 3RF atorvastatin 20 mg tablet See Rx Instructions .ROUTE .COMPLEX Qty: 45 3RF Dose Instruction: TAKE 1 TABLET EVERY OTHER DAY Rx Instructions: TAKE 1 TABLET EVERY OTHER DAY sotalol 80 mg tablet 80 mg PO BID Qty: 180 3RF potassium chloride 10 mEq capsule, extended release 10 meq PO DAILY Qty: 90 3RF Primary Care Provider: Catherine Becker Referrals: Catherine Becker MD [Primary Care Provider] - Print Language: Upper Sorbian Disposition Disposition: Acute Care Hospital [facility]
--- NOTE | 2025-03-18 08:35 | EKG12_ITS ---
Test Reason : FALL Blood Pressure : */* mmHG Vent. Rate : 78 BPM Atrial Rate : 78 BPM P-R Int : 184 ms QRS Dur : 104 ms QT Int : 416 ms P-R-T Axes : 51 0 103 degrees QTcB Int : 474 ms Sinus rhythm with occasional Premature ventricular complexes Inferior infarct , age undetermined Anterolateral infarct , age undetermined Abnormal ECG Confirmed by CARLO PONCE ([id number]), production editor GILLIAN VASQUES ([id number]) on 03/22/2025 8:07:53 AM Referred By: Confirmed By: CARLO PONCE
--- NOTE | 2025-03-18 08:35 | CT_ITS ---
PROCEDURE: BRAIN/HEAD WITHOUT CONTRAST 03/18/2025 REASON FOR EXAM: HEAD INJURY Head injury due to a fall. Patient is on anticoagulation. TECHNIQUE: BRAIN/HEAD WITHOUT CONTRAST Coronal and Sagittal reconstruction series were provided. One or more dose reduction techniques were used (e.g., Automated exposure control, adjustment of the mA and/or kV according to patient size, use of iterative reconstruction technique. RADIATION DOSE SUMMARY: CTDlvol: 44.99 mGy DLP: 897.35 mGycm COMPARISON: None FINDINGS: Brain: Low density in the periventricular white matter suggests mild chronic small vessel ischemic changes. Calcification of the basal ganglia bilaterally. This is a normal variant. CSF Spaces: Moderate generalized cerebral atrophy Sinuses/Mastoids: Partial opacification of the right maxillary sinus in the right sphenoid sinus. Mucosal thickening of the left sphenoid sinus. Bones: No fracture seen. CT/Brain/Head without Contrast IMPRESSION: CHRONIC CHANGES. NO ACUTE FINDINGS. Reading Location: [facility]
[2025-03-18 08:50] LABS: Hematocrit 33.5 % (40-54); Hemoglobin 10.8 g/dL (13.0-16.5); Immature Granulocytes Count 0.100 X10^3/uL (0.0-0.0); Mean Corp Hgb Conc 32.2 g/dL (32-36); Mean Corpuscular Volume 79.6 fL (80-94); Mean Platelet Vol. 8.4 fl (6.2-12.0); NRBC Flagged by Analyzer 0 % (0-5); Platelet Count 339 K/mm3 (150-450); RBC Distribution Width CV 16.3 % (11.6-14.6); RBC Distribution Width SD 46.5 fl (35.1-43.9); Red Blood Count 4.21 M/mm3 (4.6-6.2); White Blood Count 9.7 K/mm3 (4.4-11.0)
[2025-03-18 09:05] LABS: Troponin T High Sensitivity 42 ng/L (<=22)
--- NOTE | 2025-03-18 09:13 | RAD_ITS ---
PROCEDURE: CHEST PA AND LATERAL 03/18/2025 REASON FOR EXAM: COUGH TECHNIQUE: CHEST PA AND LATERAL COMPARISON: Prior study dated December 11, 2021. FINDINGS: Hardware: EKG electrodes are seen. Heart: Moderate cardiomegaly. Prior CABG. Mediastinum: Atherosclerotic calcification of the aortic arch. Lungs: Increased interstitial markings with vascular congestion and CHF superimposed on chronic interstitial fibrosis. Bones: Degenerative changes are identified within the thoracic spine. RAD/Chest PA and Lateral IMPRESSION: Cardiomegaly and CHF. Superimposed on chronic interstitial fibrosis. Reading Location: [id number]
[2025-03-18 09:17] LABS: Anion Gap 11 (5-15); BUN 10 mg/dL (4-19); BUN/Creat Ratio 12.9 RATIO (10-20); Calcium,Total 8.6 mg/dL (7.6-11.0); Carbon Dioxide 24.6 mmol/L (21.0-32.0); Chloride 81 mmol/L (98-108); Estimated Creatinine Clearance 64.21 ml/min (50-250); Glucose 116 mg/dL (70-99); Potassium 4.3 mmol/L (3.3-5.1)
[2025-03-18] MEDS: 0.9% Normal Saline (1000mL) 1,000 ML 1000 ML IV (09:33)
[2025-03-18 10:42] LABS: Mucous, Urine 0 SEEN /hpf (<or=2+); Squamous Epithelial Cells - UA 0 SEEN /hpf (0-5)
[2025-03-18 10:47] LABS: Color, Urine Red (Yellow); Glucose, Dipstick Normal (Normal); Ketone-Dipstick 15 mg/dl (Negative); Leukocyte Esterase-Dipstick 100 /ul (Negative); Nitrite-Dipstick Negative (Negative); Occult Blood-Urine 250 /ul (Negative); Protein-Dipstick 100 mg/dl (Negative); Specific Gravity, Urine 1.020 (1.002-1.030); Urine Bilirubin Dipstick Negative (Negative)
[2025-03-18 10:56] LABS: Troponin T High Sens 2 HR 38 ng/L (<=22)
[2025-03-18 11:03] LABS: Red Blood Cells-Urine > 100 SEEN /hpf (0-5)
--- NOTE | 2025-03-18 12:02 | CASEMGMT ---
Care Management Face to Face with patient for initial transition planning/care coordination assessment in the ED.? This song writer introduced self and role at [facility]. Patient alert and oriented. Patient willing to participate in assessment and is able to answer all questions appropriately.? Care providers, pharmacy, and demographics verified. ? Admitting Diagnosis: ?fall Other diagnosis history: ?PVD, CHF, NSTEMI, COPD, PSVT PCP: ?Eugenio Specialists: ?Clifton Arita Preferred Pharmacy: [facility] pharmacy Insurance: ?Medicare Prescription Benefit: ?yes Living Will/HPOA: ?completed LNOK: Living Arrangements: ?Lives with in a one story home.? Has been independent with ADLs, does IADLs. Transportation: transports DME: ?walker, cane, grab bars, blood pressure cuff HHC: ??Has used HH in the past but cannot remember the company SNF/Rehab: ?none Community Resources: ?none Behavioral Health History: ?none Patient goals: Patient wishes to discharge home, denies need for home health care at this time. Patient denies any further needs or concerns at this time. Disposition Plan: admission to acute; RN CM/SW to follow for discharge planning needs that may arise. Citlaly Tilley, FRONT DESK SUPERVISOR, HEAD GREENSKEEPER
[2025-03-18] MEDS: 0.9% Normal Saline (1000mL) 1,000 ML 100 ML IV ×2 (13:20→23:41)
[2025-03-18 13:33] LABS: Troponin T High Sens 4 HR 37 ng/L (<=22)
[2025-03-18] MEDS: APIXABAN 5 MG TABLET PO (15:01)
--- NOTE | 2025-03-18 16:00 | RAD_ITS ---
PROCEDURE: NASAL BONES MIN 3 VIEWS 03/18/2025 REASON FOR EXAM: TRAUMA TECHNIQUE: NASAL BONES MIN 3 VIEWS COMPARISON: None RAD/Nasal Bones min 3 Views IMPRESSION: Bilateral maxillary sinus mucosal thickening is seen, [id number]. Probable ethmoid air cell mucosal disease, as well. Mastoid air cells appear clear. No fracture or dislocation is seen. If clinical concern persists, short-term follow-up imaging may be obtained to r ule out a currently occult fracture. [facility]
[2025-03-18 17:47] LABS: Anion Gap 9 (5-15); BUN 10 mg/dL (4-19); BUN/Creat Ratio 13.5 RATIO (10-20); Calcium,Total 8.2 mg/dL (7.6-11.0); Carbon Dioxide 23.7 mmol/L (21.0-32.0); Chloride 85 mmol/L (98-108); Estimated Creatinine Clearance 63.52 ml/min (50-250); Glucose 113 mg/dL (70-99); Potassium 4.1 mmol/L (3.3-5.1)
--- NOTE | 2025-03-18 18:18 | HP.PCM.HOS_ITS ---
HPI - General General Date of Admission: 03/18/25 Date of Service: 03/18/25 Chief Complaint: Mechanical fall, generalized weakness HPI Narrative AB SHEA, is a 89 M who presents to the emergency room at [facility] after sustaining a mechanical fall at home and being too weak to ambulate. According to his , patient has not been eating or drinking as well as he should. Patient struck his face on his door frame when he fell-there is no evidence that he lost consciousness however. Workup in the emergency room included a CBC which showed a normal white blood cell count, hemoglobin was low at 10.8, chemistry panel was remarkable for a sodium of 116 and a chloride of 81, troponins were minimally elevated-I do not feel these troponins were significant. CT of the brain showed mild chronic small vessel ischemic changes, there was moderate generalized cerebral atrophy noted, otherwise no significant findings were noted. Chest x-ray showed evidence of cardiomegaly and increased interstitial markings with vascular congestion and CHF superimposed on chronic interstitial fibrosis. Patient's urinalysis showed 100 leukocyte esterase, over 100 RBCs but no WBCs and no bacteria. I discussed the patient's CODE STATUS with his , she states that his CODE STATUS is DNR CC arrest without intubation. Patient will be admitted to PCU, he will be given IV normal saline, his diuretics will be held, BMPs will be monitored. 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) Polio Colon cancer Bronchiectasis History of non-ST elevation myocardial infarction (NSTEMI) (07/01/08) History of PSVT (paroxysmal supraventricular tachycardia) Nonrheumatic aortic (valve) stenosis SUDEEP (obstructive sleep apnea) Stage 2 moderate COPD by GOLD classification Colon polyp Bilateral carotid artery stenosis Obesity COPD (chronic obstructive pulmonary disease) Essential hypertension Pure hypercholesterolemia Atherosclerosis of [place] coronary artery of [place] heart without angina pectoris Bilateral leg edema Frequent PVCs CAP (community acquired pneumonia) Home Medications ?Medication ?Instructions ?Recorded ?Last Taken ?Type aspirin 81 mg tablet,delayed 81 mg PO QDAY heart healt h 12/02/09/10/22 History release (Adult Low Dose Aspirin) omeprazole 40 mg capsule,delayed 40 mg PO DAILY gerd 0 11/23/21 Unknown History release docusate sodium 100 mg capsule 100 mg PO BID stool sof tner 07/24/22 Unknown History sennosides 8.6 mg capsule (senna) 8.6 mg PO BID laxati ve 07/24/22 Unknown History tamsulosin 0.4 mg capsule 0.4 mg PO QHS urinary flow 1 09/24/21 Unknown History albuterol sulfate 2.5 mg/3 mL 2.5 mg continuous nebuli zation 12/27/22 Unknown History (0.083 %) solution for nebulization ONCE PRN shortness of breath or wheezing apixaban 5 mg tablet (Eliquis) 5 mg PO BID aortic valv e 04/22/24 Unknown Rx replacement #180 tabs torsemide 20 mg tablet 20 mg PO DAILY diuretic #90 TABLETS 02/04/25 Unknown Rx potassium chloride 10 mEq 10 meq PO DAILY supplement # 90 caps 03/16/25 Unknown Rx capsule,extended release sotalol 80 mg tablet 80 mg PO BID arrythmia #180 tabs 03/16/25 Unknown Rx atorvastatin 20 mg tablet 20 mg PO QODAY cholesterol 0 03/18/25 Unknown History Allergy/AdvReac Type Severity Reaction Status Date / Time niacin Allergy Hives Verified 12/01/24 14:21 Sulfa (Sulfonamide Allergy Hives Verified 12/01/24 14:21 Antibiotics) Family History (Updated 12/14/24 @ 13:41 by China Cuevas) Father CVA (cerebral vascular accident) COPD (chronic obstructive pulmonary disease) Mother Cancer Son Hypertension Other S/P TAVR (transcatheter aortic valve replacement) Surgical History S/P TAVR (transcatheter aortic valve replacement) (~06/20/22) History of closure of ileostomy (04/28/20) Status post Leah's procedure (02/01/20) History of left heart catheterization (12/15/21) History of coronary artery stent placement (05/09/07) History of right-sided carotid endarterectomy (06/2008) History of shoulder surgery Social History Smoking Status: Former smoker Tobacco: How many years used: 22 how long ago did patient quit smokin second hand exposure: No alcohol intake: former substance use type: does not use caffeine: Yes Type: coffee what type of physical activity do you participate in: none seatbelt use: always do you feel safe at home: Yes ROS Constitutional Constitutional: Denies anorexia, change in weight, chills, fatigue, fever(s), night sweats or weakness Eyes Eyes: Denies blurry vision, change in vision, discharge from eye(s) or eye pain Cardiovascular Cardiovascular: Denies chest pain, claudication, dyspnea on exertion, edema or palpitations Respiratory/Chest Respiratory/Chest: Reports cough and shortness of breath with exertion; Denies dyspnea, hemoptysis, productive cough or shortness of breath at rest Gastrointestinal Gastrointestinal: Denies abdominal pain, constipation, diarrhea, hematemesis, hematochezia, melena, nausea or vomiting Genitourinary Genitourinary: Denies dysuria, hematuria, urinary frequency, urinary hesitancy, urinary incontinence or urinary urgency Musculoskeletal Musculoskeletal: Denies back pain, joint pain, joint stiffness, joint swelling, myalgias or neck pain Neurologic Neurologic: Denies abnormal gait, abnormal speech, dizziness, focal weakness, headache(s), loss of vision, numbness, other visual disturbances, paresthesias, syncope or tingling Psychiatric Psychiatric: Denies anxiety, cognitive impairment, depression, irritability, mood swings or suicidal ideation Endocrine Endocrinology: Denies change in body appearance, cold intolerance, excessive sweating, heat intolerance, polydipsia or polyuria Hematologic/Lymphatic Hematologic/Lymphatic: Denies none, anemia, easy bleeding, easy bruising or lymphadenopathy Allergic/Immunologic Allergic/Immunologic: Denies rhinitis, urticaria, eczemia or asthma Vital Signs Vital Signs Vital Signs: 03/18/25 08:01 03/18/25 08:07 03/18/25 08:59 Temperature 96.3 F L Temperature Source Axillary Pulse Rate 83 80 Pulse Rate [Lying] Pulse Rate [Sitting (for 1 minute prior to obtaining)] Pulse Rate [Standing (for 1 minute prior to obtaining)] Respiratory Rate 21 H 16 Respiratory Effort Short of Breath Labored Respiratory Depth Shallow Respiratory Pattern Tachypnea Blood Pressure 185/76 H Blood Pressure [Lying] Blood Pressure [Sitting (for 1 minute prior to obtaining)] Blood Pressure [Standing (for 1 minute prior to obtaining)] Blood Pressure Mean 112 Blood Pressure Mean [Lying] Blood Pressure Mean [Sitting (for 1 minute prior to obtaining)] Blood Pressure Mean [Standing (for 1 minute prior to obtaining)] Pulse Ox 88 Oxygen Delivery Method Room Air Nasal Cannula Oxygen Flow Rate (L/min) 2 03/18/25 09:03 03/18/25 10:00 03/18/25 10:45 Temperature 96.9 F L 96.9 F L Temperature Source Axillary Axillary Pulse Rate 77 76 Pulse Rate [Lying] 79 Pulse Rate [Sitting (for 1 minute prior to obtaining)] 78 Pulse Rate [Standing (for 1 minute prior to obtaining)] 96 Respiratory Rate 17 17 Respiratory Effort Respiratory Depth Respiratory Pattern Blood Pressure 176/70 H 178/67 H Blood Pressure [Lying] 184/69 H Blood Pressure [Sitting (for 1 minute prior to obtaining)] 163/67 H Blood Pressure [Standing (for 1 minute prior to obtaining)] 174/61 H Blood Pressure Mean 105 104 Blood Pressure Mean [Lying] 107 Blood Pressure Mean [Sitting (for 1 minute prior to obtaining)] 99 Blood Pressure Mean [Standing (for 1 minute prior to obtaining)] 98 Pulse Ox 99 99 Oxygen Delivery Method Nasal Cannula Nasal Cannula Oxygen Flow Rate (L/min) 2 2 03/18/25 11:00 03/18/25 11:00 03/18/25 12:35 Temperature 97.8 F 97.8 F 97.4 F L Temperature Source Oral Oral Pulse Rate 84 78 79 Pulse Rate [Lying] Pulse Rate [Sitting (for 1 minute prior to obtaining)] Pulse Rate [Standing (for 1 minute prior to obtaining)] Respiratory Rate 19 H 14 20 H Respiratory Effort Respiratory Depth Respiratory Pattern Blood Pressure 187/52 H 178/54 H 174/60 H Blood Pressure [Lying] Blood Pressure [Sitting (for 1 minute prior to obtaining)] Blood Pressure [Standing (for 1 minute prior to obtaining)] Blood Pressure Mean 97 95 98 Blood Pressure Mean [Lying] Blood Pressure Mean [Sitting (for 1 minute prior to obtaining)] Blood Pressure Mean [Standing (for 1 minute prior to obtaining)] Pulse Ox 96 96 100 Oxygen Delivery Method Nasal Cannula Nasal Cannula Oxygen Flow Rate (L/min) 2 2 03/18/25 13:12 03/18/25 14:00 03/18/25 15:44 Temperature 97.4 F L Temperature Source Oral Pulse Rate 82 85 Pulse Rate [Lying] Pulse Rate [Sitting (for 1 minute prior to obtaining)] Pulse Rate [Standing (for 1 minute prior to obtaining)] Respiratory Rate 20 H 20 H Respiratory Effort Normal Non-Labored Respiratory Depth Normal Respiratory Pattern Normal Tachypnea Blood Pressure 150/62 H Blood Pressure [Lying] Blood Pressure [Sitting (for 1 minute prior to obtaining)] Blood Pressure [Standing (for 1 minute prior to obtaining)] Blood Pressure Mean 91 Blood Pressure Mean [Lying] Blood Pressure Mean [Sitting (for 1 minute prior to obtaining)] Blood Pressure Mean [Standing (for 1 minute prior to obtaining)] Pulse Ox 95 Oxygen Delivery Method Nasal Cannula Nasal Cannula Oxygen Flow Rate (L/min) 1 Weight Weight: 80.2 kg Body Mass Index (BMI) 27.6 Physical Exam Const alert, no apparent distress and healthy appearing General Appearance: cooperative, well kempt and well developed Orientation / Consciousness: awake, oriented to person and oriented to place HEENT normocephalic and moist oral mucous membranes HEENT Narrative: Patient has some bruising about his face and nasal area Eyes PERRL, EOMs intact bilaterally and conjunctivae normal Neck supple, no JVD, thyroid normal and no carotid bruits General: trachea midline Resp normal respiratory effort and clear to auscultation bilaterally Resp Narrative: There are expiratory rhonchi noted over both lungs Auscultation: rhonchi throughout; Negative for rales or wheezes Cardio regular rate, regular rhythm, S1 normal heart sound, S2 normal heart sound, no murmurs, no rub and no gallops GI normal to inspection, nondistended, normoactive bowel sounds, soft to palpation, non-tender and non-distended Extremity no clubbing, cyanosis or edema Skin no rashes or lesions noted General Skin Exam: no breakdown Neuro CN's II-XII intact bilaterally, moves all extremities, no focal motor deficits and no sensory deficits noted Sensorium / Orientation: awake, alert, oriented to person and oriented to place Speech: speech normal Psych affect normal Results Lab / Micro Data 03/18/25 08:15 03/18/25 16:52 Labs: Laboratory Results - last 24 hr 03/18/25 08:15: WBC 9.7, RBC 4.21 L, Hgb 10.8 L, Hct 33.5 L, MCV 79.6 L, MCH 25.7 L, MCHC 32.2, RDW Std Deviation 46.5 H, RDW Coeff of Jose Alberto 16.3 H, Plt Count 339, MPV 8.4, Immature Gran % (Auto) 1.000 H, Neut % (Auto) 77.4 H, Lymph % (Auto) 9.1 L, [place] % (Auto) 9.4, Eos % (Auto) 2.9, Baso % (Auto) 0.2, Absolute Neuts (auto) 7.5, Absolute Lymphs (auto) 0.88, Nucleated RBC % 0, Sodium 116 L*, Potassium 4.3, Chloride 81 L, Carbon Dioxide 24.6, Anion Gap 11, BUN 10, Creatinine 0.77, Estim Creat Clear Calc 64.21, Est GFR (MDRD) Non-Af 85, BUN/Creatinine Ratio 12.9, Glucose 116 H, Calcium 8.6, Troponin T High Sens 42 H 03/18/25 08:40: Lactic Acid 1.2 03/18/25 10:25: Troponin T Hi Sens 2 Hr 38 H 03/18/25 10:35: Urine Color Red, Urine Clarity Cloudy, Urine pH 6.0, Ur Specific [place] 1.020, Urine Protein 100 H, Urine Glucose (UA) Normal, Urine Ketones 15 H, Urine Occult Blood 250 H, Urine Nitrite Negative, Urine Bilirubin Negative, U rine Urobilinogen 1 H, Ur Leukocyte Esterase 100 H, Urine RBC > 100 SEEN, Urine WBC 0 SEEN, Ur Squamous Epith Cells 0 SEEN, Urine Bacteria 0 SEEN, Urine Mucus 0 SEEN 03/18/25 13:00: Troponin T Hi Sens 4Hr 37 H 03/18/25 16:52: Sodium 118 L*, Potassium 4.1, Chloride 85 L, Carbon Dioxide 23.7, Anion Gap 9, BUN 10, Creatinine 0.71, Estim Creat Clear Calc 63.52, Est GFR (MDRD) Non-Af 88, BUN/Creatinine Ratio 13.5, Glucose 113 H, Calcium 8.2 Imaging Radiology Impression Brain CT 03/18/25 08:35 IMPRESSION: CHRONIC CHANGES. NO ACUTE FINDINGS. Reading Location: [facility] Chest X-Ray 03/18/25 09:13 IMPRESSION: Cardiomegaly and CHF. Superimposed on chronic interstitial fibrosis. Reading Location: [id number] Nasal Bones X-Ray 03/18/25 16:00 IMPRESSION: Bilateral maxillary sinus mucosal thickening is seen, [id number]. Probable ethmoid air cell mucosal disease, as well. Mastoid air cells appear clear. No fracture or dislocation is seen. If clinical concern persists, short-term follow-up imaging may be obtained to rule out a currently occult fracture. Reading Location: [facility] Assessment & Plan Assessment/Plan (1) Weakness: PLAN: Plan 1. Hyponatremia-patient will be admitted to PCU and received IV normal saline, BMP will be rechecked today, BMP will be monitored every morning, patient's torsemide will be held #2 generalized weakness-secondary to advanced age and hyponatremia-patient will see PT and OT #3 paroxysmal [id number] is on Eliquis and sotalol #4 coronary artery disease patient has a past history of stent placement #5 valvular heart disease-patient is post TAVR #6 interstitial lung fibrosis-complicates care, management, recovery, and prognosis, patient will remain on aerosol treatments Total clinical time spent by myself addressing the patient's medical issues, reviewing all of his data, and collaborating with the patient's care team: 75 minutes Charges/Coding Visit Charges Inpatient E&M: 49454 Init Hosp L3
[2025-03-18] MEDS: Budesonide Respules 0.5 MG/2 ML AMPUL.NEB. INHALATION (20:33)
[2025-03-18] MEDS: Senna Tablet 1 TABLET PO (21:55)
[2025-03-18] MEDS: Sotalol Hydrochloride 80 MG Tablet PO (21:55)
--- NOTE | 2025-03-18 22:37 | PCM.HOSP.N ---
Hospitalist Note Patient with straight cath in ED now with hematuria and small clots. Will temporarily hold eliquis and continue to monitor.
[2025-03-19] VITALS (10 sets, daily range): BP systolic 133–156; BP diastolic 49–69; PULSE 73–85; RESP 14–24; TEMP 36.1–36.3; O2SAT 92–99
[2025-03-19] MEDS: Budesonide Respules 0.5 MG/2 ML AMPUL.NEB. INHALATION ×2 (06:53→21:24)
[2025-03-19 07:36] LABS: Hematocrit 31.0 % (40-54); Hemoglobin 9.8 g/dL (13.0-16.5); Immature Granulocytes Count 0.050 X10^3/uL (0.0-0.0); Mean Corp Hgb Conc 31.6 g/dL (32-36); Mean Corpuscular Volume 81.6 fL (80-94); Mean Platelet Vol. 8.6 fl (6.2-12.0); NRBC Flagged by Analyzer 0 % (0-5); Platelet Count 285 K/mm3 (150-450); RBC Distribution Width CV 16.0 % (11.6-14.6); RBC Distribution Width SD 47.7 fl (35.1-43.9); Red Blood Count 3.80 M/mm3 (4.6-6.2); White Blood Count 8.0 K/mm3 (4.4-11.0)
[2025-03-19 08:11] LABS: Magnesium 1.9 mg/dL (1.5-2.2)
[2025-03-19 08:15] LABS: Anion Gap 10 (5-15); BUN 9 mg/dL (4-19); BUN/Creat Ratio 14.2 RATIO (10-20); Calcium,Total 8.5 mg/dL (7.6-11.0); Carbon Dioxide 22.2 mmol/L (21.0-32.0); Chloride 87 mmol/L (98-108); Estimated Creatinine Clearance 63.52 ml/min (50-250); Glucose 94 mg/dL (70-99); Potassium 4.2 mmol/L (3.3-5.1)
[2025-03-19] MEDS: 0.9% Normal Saline (1000mL) 1,000 ML 100 ML IV (10:15)
[2025-03-19] MEDS: 0.9% Saline Lock 10 ML Syringe IV ×2 (10:15→17:11)
[2025-03-19] MEDS: Aspirin E.C. 81 MG Tablet PO (10:17)
[2025-03-19] MEDS: Sotalol Hydrochloride 80 MG Tablet PO ×2 (10:17→22:24)
[2025-03-19] MEDS: Senna Tablet 1 TABLET PO ×2 (10:17→22:24)
--- NOTE | 2025-03-19 13:32 | DCINST_ITS ---
Discharge Instructions DC O2, CPAP, BIPAP needs Home O2 Discharge instructions: No Dressing / Incision Discharge Activity: Return to Normal Activity Weight Bearing Status: Full weight bearing Follow Up Care Test Results: Test results from this visit will be discussed in further detail at your follow- up appointment, if applicable. Discharge Plan Admission Admit Date/Time: 03/18/25 11:13 Primary Reason for Your Visit: Dysarthria-probably secondary to medication Attending Provider: Odilon Sandoval Primary Care Provider: Catherine Becker Discharge Orders/Prescriptions Prescriptions: No Action aspirin [Adult Low Dose Aspirin] 81 mg tablet,delayed release (DR/EC) 81 mg PO QDAY omeprazole 40 mg capsule,delayed release(DR/EC) 40 mg PO DAILY docusate sodium 100 mg capsule 100 mg PO BID senna 8.6 mg capsule 8.6 mg PO BID tamsulosin 0.4 mg capsule 0.4 mg PO QHS albuterol sulfate 2.5 mg /3 mL (0.083 %) solution for nebulization 2.5 mg continuous nebulization ONCE PRN (Reason: shortness of breath or wheezing) atorvastatin 20 mg tablet 20 mg PO QODAY Rx Instructions: TAKE 1 TABLET EVERY OTHER DAY Eliquis 5 mg tablet 5 mg PO BID Qty: 180 3RF torsemide 20 mg tablet 20 mg PO DAILY Qty: 90 3RF sotalol 80 mg tablet 80 mg PO BID Qty: 180 3RF potassium chloride 10 mEq capsule, extended release 10 meq PO DAILY Qty: 90 3RF Referrals / Follow Up: Catherine Becker MD [Primary Care Provider] -
--- NOTE | 2025-03-19 15:09 | NURSING ---
Pt in Radiology from 1400 to 1510 to attempt ultrasound guidance for IV. Ultrasound being utilized by ED during entire time pt in Radiology, unable to assess vessels for extended dwell catheter. Pt sent back to PCU. PCU advised to call clinical associate.
[2025-03-19] MEDS: Ensure Plus High Protein 120 ML LIQUID PO (17:28)
--- NOTE | 2025-03-19 19:18 | PCM.PN.HOSP ---
Reason for Visit Chief Complaint: Mechanical fall, generalized weakness Subjective Subjective Patient was seen and examined today, his sodium was 119 today, chloride was 87. Patient remains on 2 L nasal cannula oxygen, patient still has hematuria in his Bhatia bag. Hemoglobin this morning was 9.8. Patient had a period of sinus arrest today that lasted about 3 seconds, he was asymptomatic, he also had what appeared to be short runs of ventricular tachycardia which were self-limited. Objective Data Objective Data Vital Signs: Vital Signs Temp Pulse Resp BP Pulse Ox O2 Del Method O2 Flow Rate 97.2 F L 81 14 133/49 H 98 Nasal Cannula 2 03/19/25 15:51 03/19/25 15:51 03/19/25 15:52 03/19/25 15:51 03/19/25 15:51 03/19/25 15:52 03/19/25 15:52 Oxygen Flow Rate (L/min) 2 Oxygen Delivery Method Nasal Cannula Weight: 80.2 kg Body Mass Index (BMI) 27.6 Intake & Output: Intake and Output for Last 24 Hours 03/17/25 03/18/25 03/19/25 23:59 23:59 23:59 Intake Total 2200 / 2200 1715 / 1715 Output Total 1000 / 1000 Balance 2200 / 1900 715 / 715 Lab / Micro Data 03/19/25 06:40 03/19/25 06:40 Labs: Laboratory Results - last 24 hr 03/19/25 06:40: WBC 8.0, RBC 3.80 L, Hgb 9.8 L, Hct 31.0 L, MCV 81.6, MCH 25.8 L, MCHC 31.6 L, RDW Std Deviation 47.7 H, RDW Coeff of Jose Alberto 16.0 H, Plt Count 285, MPV 8.6, Immature Gran % (Auto) 0.600, Neut % (Auto) 72.1 H, Lymph % (Auto) 11.9 L, [place] % (Auto) 11.8 H, Eos % (Auto) 3.3, Baso % (Auto) 0.3, Absolute Neuts (auto) 5.7, Absolute Lymphs (auto) 0.95, Nucleated RBC % 0, Sodium 119 L*, Potassium 4.2, Chloride 87 L, Carbon Dioxide 22.2, Anion Gap 10, BUN 9, Creatinine 0.61 L, Estim Creat Clear Calc 63.52, Est GFR (MDRD) Non-Af 92, BUN/Creatinine Ratio 14.2, Glucose 94, Calcium 8.5, Magnesium 1.9 Physical Exam Narrative alert, no apparent distress and healthy appearing General Appearance: cooperative, well kempt and well developed Orientation / Consciousness: awake, oriented to person and oriented to place HEENT normocephalic and moist oral mucous membranes HEENT Narrative: Patient has some bruising about his face and nasal area Eyes PERRL, EOMs intact bilaterally and conjunctivae normal Neck supple, no JVD, thyroid normal and no carotid bruits General: trachea midline Resp normal respiratory effort and clear to auscultation bilaterally Resp Narrative: Auscultation: Negative for rhonchi t; Negative for rales or wheezes Cardio regular rate, regular rhythm, S1 normal heart sound, S2 normal heart sound, no murmurs, no rub and no gallops GI normal to inspection, nondistended, normoactive bowel sounds, soft to palpation, non-tender and non-distended Extremity no clubbing, cyanosis or edema Skin no rashes or lesions noted General Skin Exam: no breakdown Neuro CN's II-XII intact bilaterally, moves all extremities, no focal motor deficits and no sensory deficits noted Sensorium / Orientation: awake, alert, oriented to person and oriented to place Speech: speech normal Psych affect normal Assessment & Plan Assessment/Plan (1) Hyponatremia: (2) Weakness: PLAN: Plan 1. Hyponatremia-secondary to outpatient diuretic use each-patient will continue to receive IV normal saline, BMP will be rechecked tomorrow #2 generalized weakness-secondary to advanced age and hyponatremia-patient will see PT and OT #3 paroxysmal [id number] is on Eliquis and sotalol #4 coronary artery disease patient has a past history of stent placement #5 valvular heart disease-patient is post TAVR #6 interstitial lung fibrosis-complicates care, management, recovery, and prognosis, patient will remain on aerosol treatments #7 hematuria-etiology unclear, could be secondary to Bhatia trauma, this will be monitored, hemoglobin and hematocrit will be rechecked tomorrow #8 cardiac arrhythmias-patient had a short run of V. tach today as well as a period of sinus arrest lasting approximately 3 seconds, he will be monitored on telemetry Total clinical time spent by myself addressing the patient's medical issues, reviewing all of his data, and collaborating with the patient's care team: 35 minutes Charges/Coding Visit Charges Inpatient E&M: 00426 Subs Hosp L2
[2025-03-19] MEDS: APIXABAN 5 MG TABLET PO (22:24)
[2025-03-20] MEDS: 0.9% Normal Saline (1000mL) 1,000 ML 100 ML IV ×3 (00:15→20:31)
[2025-03-20 04:24] VITALS: BP 139/61; PULSE 65; RESP 19; TEMP 36.2; O2SAT 96
[2025-03-20 06:49] LABS: Hematocrit 31.3 % (40-54); Hemoglobin 9.7 g/dL (13.0-16.5)
[2025-03-20 06:59] VITALS: PULSE 79; RESP 18; O2SAT 93
[2025-03-20] MEDS: Budesonide Respules 0.5 MG/2 ML AMPUL.NEB. INHALATION ×2 (06:59→19:39)
[2025-03-20 07:11] LABS: Magnesium 1.7 mg/dL (1.5-2.2)
[2025-03-20 07:12] LABS: Anion Gap 10 (5-15); BUN 10 mg/dL (4-19); BUN/Creat Ratio 14.8 RATIO (10-20); Calcium,Total 8.5 mg/dL (7.6-11.0); Carbon Dioxide 21.3 mmol/L (21.0-32.0); Chloride 89 mmol/L (98-108); Estimated Creatinine Clearance 63.52 ml/min (50-250); Glucose 99 mg/dL (70-99); Potassium 4.5 mmol/L (3.3-5.1)
[2025-03-20 08:49] VITALS: BP 139/54; PULSE 72; RESP 18; TEMP 36.6; O2SAT 94
[2025-03-20] MEDS: Ensure Plus High Protein 120 ML LIQUID PO ×3 (08:54→17:21)
[2025-03-20] MEDS: Aspirin E.C. 81 MG Tablet PO (08:54)
[2025-03-20] MEDS: Sotalol Hydrochloride 80 MG Tablet PO ×2 (08:55→20:49)
[2025-03-20] MEDS: APIXABAN 5 MG TABLET PO ×2 (08:55→20:50)
[2025-03-20] MEDS: Senna Tablet 1 TABLET PO ×2 (08:56→20:50)
--- NOTE | 2025-03-20 13:56 | PN.HOSP_ITS ---
Reason for Visit Chief Complaint: Mechanical fall, generalized weakness Subjective Subjective Patient was seen and examined today, I asking him if he had any objections to going to a skilled facility for short-term care, he states he would rather go home, I told him that he would have to talk to his and see what her opinion is. Patient's sodium is still low, I have placed him on sodium chloride tablets and we will continue IV normal saline Objective Data Objective Data Vital Signs: Vital Signs Temp Pulse Resp BP Pulse Ox O2 Del Method O2 Flow Rate 97.8 F 72 18 139/54 H 94 Nasal Cannula 2 03/20/25 08:49 03/20/25 08:49 03/20/25 08:49 03/20/25 08:49 03/20/25 08:49 03/20/25 08:49 03/20/25 11:38 Oxygen Flow Rate (L/min) 2 Oxygen Delivery Method Nasal Cannula Weight: 80.2 kg Body Mass Index (BMI) 27.6 Intake & Output: Intake and Output for Last 24 Hours 03/18/25 03/19/25 03/20/25 23:59 23:59 23:59 Intake Total 2200 / 2200 1715 / 1715 2265 / 2265 Output Total 1000 / 1200 470 / 470 Balance 2200 / 1900 715 / 515 1795 / 1795 Lab / Micro Data 03/20/25 05:58 03/20/25 05:58 Labs: Laboratory Results - last 24 hr 03/20/25 05:58: Hgb 9.7 L, Hct 31.3 L, Sodium 120 L, Potassium 4.5, Chloride 89 L, Carbon Dioxide 21.3, Anion Gap 10, BUN 10, Creatinine 0.69 L, Estim Creat Clear Calc 63.52, Est GFR (MDRD) Non-Af 89, BUN/Creatinine Ratio 14.8, Glucose 99, Calcium 8.5, Magnesium 1.7 Physical Exam Narrative alert, no apparent distress and healthy appearing General Appearance: cooperative, well kempt and well developed Orientation / Consciousness: awake, oriented to person and oriented to place HEENT normocephalic and moist oral mucous membranes HEENT Narrative: Patient has some bruising about his face and nasal area Eyes PERRL, EOMs intact bilaterally and conjunctivae normal Neck supple, no JVD, thyroid normal and no carotid bruits General: trachea midline Resp normal respiratory effort and clear to auscultation bilaterally Resp Narrative: Auscultation: Negative for rhonchi t; Negative for rales or wheezes Cardio regular rate, regular rhythm, S1 normal heart sound, S2 normal heart sound, no murmurs, no rub and no gallops GI normal to inspection, nondistended, normoactive bowel sounds, soft to palpation, non-tender and non-distended Extremity no clubbing, cyanosis or edema Skin no rashes or lesions noted General Skin Exam: no breakdown Neuro CN's II-XII intact bilaterally, moves all extremities, no focal motor deficits and no sensory deficits noted Sensorium / Orientation: awake, alert, oriented to person and oriented to place Speech: speech normal Psych affect normal Assessment & Plan Assessment/Plan (1) Hyponatremia: (2) Weakness: PLAN: Plan 1. Hyponatremia-secondary to outpatient diuretic use each-patient will continue to receive IV normal saline, BMP will be rechecked tomorrow, he is now on sodium chloride tablets #2 generalized weakness-secondary to advanced age and hyponatremia-patient will see PT and OT, I will with the patient's to see if she would like him to go to a longterm facility #3 paroxysmal [id number] is on Eliquis and sotalol #4 coronary artery disease patient has a past history of stent placement #5 valvular heart disease-patient is post TAVR #6 interstitial lung fibrosis-complicates care, management, recovery, and prognosis, patient will remain on aerosol treatments #7 hematuria-etiology unclear, could be secondary to Bhatia trauma, this will be monitored, hemoglobin remained stable at this time #8 cardiac arrhythmias-patient had a short run of V. [id number]-az well as a period of sinus arrest lasting approximately 3 seconds on 03/18/2025, he will be monitored on telemetry for further arrhythmias Total clinical time spent by myself addressing the patient's medical issues, reviewing all of his data, and collaborating with the patient's care team: 35 minutes Charges/Coding Visit Charges Inpatient E&M: 54563 Subs Hosp L2
[2025-03-20 14:38] VITALS: BP 87/70; PULSE 88; RESP 16; TEMP 36.4; O2SAT 99
[2025-03-20 19:41] VITALS: PULSE 88; RESP 20; O2SAT 92
[2025-03-20 20:46] VITALS: BP 141/82; PULSE 86; RESP 20; TEMP 36.6; O2SAT 97
[2025-03-21] VITALS (8 sets, daily range): BP systolic 138–166; BP diastolic 53–79; PULSE 73–93; RESP 18–20; TEMP 36.2–36.6; O2SAT 94–98
[2025-03-21] MEDS: MELATONIN 3 MG TABLET PO (00:26)
[2025-03-21] MEDS: 0.9% Normal Saline (1000mL) 1,000 ML 100 ML IV ×2 (06:31→17:10)
[2025-03-21] MEDS: Budesonide Respules 0.5 MG/2 ML AMPUL.NEB. INHALATION ×2 (07:18→19:27)
[2025-03-21 07:38] LABS: Anion Gap 9 (5-15); BUN 14 mg/dL (4-19); BUN/Creat Ratio 19.8 RATIO (10-20); Calcium,Total 8.3 mg/dL (7.6-11.0); Carbon Dioxide 16.8 mmol/L (21.0-32.0); Chloride 94 mmol/L (98-108); Estimated Creatinine Clearance 63.52 ml/min (50-250); Glucose 115 mg/dL (70-99); Potassium 4.9 mmol/L (3.3-5.1)
[2025-03-21] MEDS: Aspirin E.C. 81 MG Tablet PO (09:42)
[2025-03-21] MEDS: Ensure Plus High Protein 120 ML LIQUID PO ×3 (09:43→16:58)
[2025-03-21] MEDS: Sotalol Hydrochloride 80 MG Tablet PO ×2 (09:43→22:55)
[2025-03-21] MEDS: APIXABAN 5 MG TABLET PO ×2 (09:43→22:55)
[2025-03-21] MEDS: Senna Tablet 1 TABLET PO ×2 (09:44→22:56)
--- NOTE | 2025-03-21 17:01 | PN.HOSP_ITS ---
Reason for Visit Chief Complaint: Mechanical fall, generalized weakness Subjective Subjective Patient was seen and examined today, his sodium today was 121, PT is recommended that the patient go to an extended care facility for short-term rehab services. I talked to his concerning this and his is in agreement and the patient is in agreement that he will go to a SNF at discharge from the hospital. Objective Data Objective Data Vital Signs: Vital Signs Temp Pulse Resp BP Pulse Ox O2 Del Method O2 Flow Rate 97.2 F L 79 18 154/64 H 96 Nasal Cannula 2 03/21/25 15:40 03/21/25 15:40 03/21/25 15:40 03/21/25 15:40 03/21/25 15:40 03/21/25 15:40 03/21/25 15:40 Oxygen Flow Rate (L/min) 2 Oxygen Delivery Method Nasal Cannula Weight: 80.2 kg Body Mass Index (BMI) 27.6 Intake & Output: Intake and Output for Last 24 Hours 03/19/25 03/20/25 03/21/25 23:59 23:59 23:59 Intake Total 1715 / 1715 3265 / 3265 1360 / 1360 Output Total 1000 / 1200 720 / 1170 600 / 600 Balance 715 / 515 2545 / 2095 760 / 760 Lab / Micro Data 03/20/25 05:58 03/21/25 06:47 Labs: Laboratory Results - last 24 hr 03/21/25 06:47: Sodium 121 L, Potassium 4.9, Chloride 94 L, Carbon Dioxide 16.8 L, Anion Gap 9, BUN 14, Creatinine 0.68 L, Estim Creat Clear Calc 63.52, Est GFR (MDRD) Non-Af 89, BUN/Creatinine Ratio 19.8, Glucose 115 H, Calcium 8.3 Physical Exam Narrative alert, no apparent distress and healthy appearing General Appearance: cooperative, well kempt and well developed Orientation / Consciousness: awake, oriented to person and oriented to place HEENT normocephalic and moist oral mucous membranes HEENT Narrative: Patient has some bruising about his face and nasal area Eyes PERRL, EOMs intact bilaterally and conjunctivae normal Neck supple, no JVD, thyroid normal and no carotid bruits General: trachea midline Resp normal respiratory effort and clear to auscultation bilaterally Resp Narrative: Auscultation: Negative for rhonchi t; Negative for rales or wheezes Cardio regular rate, regular rhythm, S1 normal heart sound, S2 normal heart sound, no murmurs, no rub and no gallops GI normal to inspection, nondistended, normoactive bowel sounds, soft to palpation, non-tender and non-distended Extremity no clubbing, cyanosis or edema Skin no rashes or lesions noted General Skin Exam: no breakdown Neuro CN's II-XII intact bilaterally, moves all extremities, no focal motor deficits and no sensory deficits noted Sensorium / Orientation: awake, alert, oriented to person and oriented to place Speech: speech normal Psych affect normal Assessment & Plan Assessment/Plan (1) Hyponatremia: (2) Weakness: PLAN: Plan 1. 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 [id number] well as a period of sinus arrest lasting approximately 3 seconds on 03/18/2025, he will be monitored on telemetry for further arrhythmias Total clinical time spent by myself addressing the patient's medical issues, reviewing all of his data, and collaborating with the patient's care team: 35 minutes Charges/Coding Visit Charges Inpatient E&M: 32228 Subs Hosp L2
[2025-03-22] MEDS: 0.9% Normal Saline (1000mL) 1,000 ML 100 ML IV (02:45)
[2025-03-22 03:00] VITALS: BP 125/75; PULSE 75; RESP 18; TEMP 36.6; O2SAT 95
--- NOTE | 2025-03-22 04:52 | PCM.DEATH ---
Preliminary Cause of Preliminary Cause of Preliminary Cause of : #1. Unknown, possibly Cardiopulmonary arrest related to VT #2. Hyponatremia related to diuretic usage #3. PAF #4. CAD status post previous PCI #5. Valvular heart disease status post TAVR #6. Interstitial lung fibrosis Date of Admission: 03/18/25 Date of : 03/22/25 (Estimated time of : 440 am) Principle Diagnosis Problem List: Active and Suspected Problems (Updated 03/18/25 @ 11:[address] Ga Meredith, DO) Hyponatremia (Acute) Weakness (Acute) Hospital Course The patient was admitted on 03/18/2025 with significant generalized weakness, debility and fall at home with inability to ambulate with recent poor oral intake noted of struck his face on the door frame with no LOC. ED evaluation with no marked WC elevation or left shift however patient sodium was 116 and chloride was 81, CT of the brain with mild chronic small vessel ischemic changes with moderate generalized fibril atrophy, chest x-ray with cardiomegaly with increased interstitial markings with underlying chronic interstitial fibrosis, urinalysis not marked appearing. Patient was admitted with continued hold on IV diuretic therapy with judicious IV fluids in addition to salt tablets. Patient was then maintained on sotalol and Eliquis for underlying PAF. Patient during admission did have short runs of V. tach that was nonsustained as well as reported. Sinus arrest lasting approximately 3 seconds on 03/18/2025. On 03/22/2025 at 4:40 AM initially CODE BLUE called however clarified and patient is DNR CCA no intubation therefore this was canceled with last evaluation at approximately 3 AM with IV fluids being very hung per discussion with nursing staff. Unfortunately patient would persistently remove his telemetry and refused to have it replaced therefore it was off at the time of his per discussion with staff. Patient estimated from 3 to 4:40 AM. On exact known cause however from discussion with staff over the last 48 hours patient has been very restless and this certainly could have been terminal restlessness.
--- NOTE | 2025-03-22 04:54 | NURSING ---
This nurse called to let her know of patients passing. is planning to come in this morning. requested this nurse call the son. Call was placed to son with no answer. Message was left to call this nurse back and hospital phone number was left on voicemail.
== END 2025-03-22 08:22 | DRG 641 ==
LOC: ED 11:19 → PCU 11:41
PROVIDERS: Family Medicine; Admitting Provider Internal Medicine; Emergency Provider Emergency Medicine; PCP Internal Medicine; Visit Provider Internal Medicine
DX: E87.1 Hypo-osmolality and hyponatremia (principal); I42.1 Obstructive hypertrophic cardiomyopathy; I47.20 Ventricular tachycardia, unspecified; I50.32 Chronic diastolic (congestive) heart failure; N99.820 Postprocedural hemorrhage of a genitourinary system organ or structure following a genitourinary system procedure; Z66 Do not resuscitate; I11.0 Hypertensive heart disease with heart failure; J44.9 Chronic obstructive pulmonary disease, unspecified; I46.2 Cardiac arrest due to underlying cardiac condition; I48.0 Paroxysmal atrial fibrillation; E78.00 Pure hypercholesterolemia, unspecified; I25.10 Atherosclerotic heart disease of native coronary artery without angina pectoris; J84.10 Pulmonary fibrosis, unspecified; W06.XXXA Fall from bed, initial encounter; R54 Age-related physical debility; I45.5 Other specified heart block; S00.81XA Abrasion of other part of head, initial encounter; S00.31XA Abrasion of nose, initial encounter; S00.511A Abrasion of lip, initial encounter; E87.8 Other disorders of electrolyte and fluid balance, not elsewhere classified; I25.2 Old myocardial infarction; T50.2X5A Adverse effect of carbonic-anhydrase inhibitors, benzothiadiazides and other diuretics, initial encounter; R31.9 Hematuria, unspecified; R33.9 Retention of urine, unspecified; Y84.6 Urinary catheterization as the cause of abnormal reaction of the patient, or of later complication, without mention of misadventure at the time of the procedure; Y92.239 Unspecified place in hospital as the place of occurrence of the external cause; Z79.01 Long term (current) use of anticoagulants; Z79.899 Other long term (current) drug therapy; Z87.891 Personal history of nicotine dependence; Z95.5 Presence of coronary angioplasty implant and graft
CPT/HCPCS: 36415; 70160; 70450; 71046; 80048; 81001; 83605; 83735; 84484; 85014; 85018; 85025; 93005; 94640; 97116; 97162; 97166; 97530; 97535; 97802; 99285; A4216